=== PATIENT | male | born 1970 | race American Indian/Alaskan Native ===

== ENCOUNTER 2016-08-06 09:28 | Emergency (ER) | payer SELFPAY ==
[2016-08-06 09:59] VITALS: BP 135/87
[2016-08-06 10:20] LABS: Basophils % (Auto) 0.5 % (0.0-1.8); Eosinophils % (Auto) 0.2 % (0.0-4.3); Hematocrit 49.2 % (35.5-45.6); Hemoglobin 16.5 gm/dl (11.8-15.2); Mean Corpuscular HGB Conc 33 % (32-34); Mean Corpuscular Hemoglobin 31 pg (28-32); Mean Corpuscular Volume 94 fl (84-94); Platelet Count 215 K/mm3 (140-440); Red Blood Count 5.24 M/mm3 (3.65-5.03); Red Cell Distribution Width 15.1 % (13.2-15.2); White Blood Count 5.7 K/mm3 (4.5-11.0)
[2016-08-06 10:37] LABS: Anion Gap 22 mmol/L; Blood Urea Nitrogen 18 mg/dL (9-20); Calcium 9.2 mg/dL (8.4-10.2); Carbon Dioxide 22 mmol/L (22-30); Chloride 94.5 mmol/L (98-107); Glucose 129 mg/dL (75-100); Potassium 4.4 mmol/L (3.6-5.0); Sodium 134 mmol/L (137-145)
--- NOTE | 2016-08-06 10:56 | XRay Report ---
Chest 2 views: History: Chest pain. Findings: Normal cardiomediastinal silhouette. Trachea is midline. No consolidation, pneumothorax or pleural effusion. Impression: No acute cardiopulmonary findings.
--- NOTE | 2016-08-07 07:29 | ED Elopement Review ---
ED Pt Elopement review - Results review Lab results: Laboratory Tests 08/06/16 08/06/16 10:06 10:06 WBC 5.7 RBC 5.24 H Hgb 16.5 H Hct 49.2 H MCV 94 MCH 31 MCHC 33 RDW 15.1 Plt Count 215 Lymph % (Auto) 19.2 [place] % (Auto) 13.7 H Eos % (Auto) 0.2 Baso % (Auto) 0.5 Lymph # 1.1 L [place] # 0.8 Eos # 0.0 Baso # 0.0 Seg Neutrophils % 66.4 Seg Neutrophils # 3.8 Sodium 134 L Potassium 4.4 Chloride 94.5 L Carbon Dioxide 22 Anion Gap 22 BUN 18 Creatinine 1.0 Estimated GFR > 60 BUN/Creatinine Ratio 18.00 Glucose 129 H Calcium 9.2 Troponin T < 0.010 - Call Back decision Pt Call Back Decision: Pt to F/U with PMD (abnomal EKG PMD or return)
== END 2016-08-06 12:10 | disposition left against medical advice (07) ==
LOC: ED 09:28
DX: R07.9 Chest pain, unspecified (principal); R55 Syncope and collapse; I25.2 Old myocardial infarction; F17.200 Nicotine dependence, unspecified, uncomplicated; F12.90 Cannabis use, unspecified, uncomplicated; Z53.21 Procedure and treatment not carried out due to patient leaving prior to being seen by health care provider
CPT/HCPCS: 36415; 71020; 80048; 84484; 85025; 93005; 93010

== ENCOUNTER 2016-09-05 02:02 | Emergency (ER) | payer SELFPAY ==
[2016-09-05 03:30] LABS: Anion Gap 20 mmol/L; BUN/Creatinine Ratio 16.25; Blood Urea Nitrogen 13 mg/dL (9-20); Calcium 8.6 mg/dL (8.4-10.2); Carbon Dioxide 23 mmol/L (22-30); Chloride 100.1 mmol/L (98-107); Glucose 106 mg/dL (75-100); Potassium 4.3 mmol/L (3.6-5.0); Sodium 139 mmol/L (137-145)
[2016-09-05 03:38] LABS: Basophils % (Auto) 0.8 % (0.0-1.8); Eosinophils % (Auto) 1.2 % (0.0-4.3); Hematocrit 46.8 % (35.5-45.6); Hemoglobin 15.6 gm/dl (11.8-15.2); Mean Corpuscular HGB Conc 33 % (32-34); Mean Corpuscular Hemoglobin 31 pg (28-32); Mean Corpuscular Volume 93 fl (84-94); Platelet Count 226 K/mm3 (140-440); Red Blood Count 5.05 M/mm3 (3.65-5.03); Red Cell Distribution Width 14.5 % (13.2-15.2); White Blood Count 5.8 K/mm3 (4.5-11.0)
--- NOTE | 2016-09-05 04:01 | Cat Scan Report ---
FINAL REPORT PROCEDURE: CT HEAD/BRAIN WO CON TECHNIQUE: Computerized tomography of the head was performed without contrast material. HISTORY: fall, neck pain, numbness to LE COMPARISON: No prior studies are available for comparison. FINDINGS: Skull and scalp: Normal. Paranasal sinuses: There is right maxillary sinusitis.. Ventricles and subarachnoid spaces: Normal. Cerebrum: No evidence of hemorrhage, acute infarction or mass . Cerebellum and brainstem: No evidence of hemorrhage, acute infarction or mass. Vasculature: Normal. Comments: None. IMPRESSION: There is no skull fracture. There is no intracranial hemorrhage. There is right maxillary sinusitis.
--- NOTE | 2016-09-05 04:09 | Cat Scan Report ---
FINAL REPORT PROCEDURE: CT CERVICAL SPINE WO CON TECHNIQUE: Computerized tomography of the cervical spine was performed from the skull base to T1 without contrast material. HISTORY: fall, neck pain, numbness to LE COMPARISON: No prior studies are available for comparison. FINDINGS: The skull base and the foramen magnum are intact. Cervical vertebrae are intact. There are no fractures or malalignments. There is mild degenerative disc change. The facet joints are intact. There is no facet dislocation. The prevertebral soft tissues are normal in thickness. IMPRESSION: No significant abnormality.
--- NOTE | 2016-09-05 07:26 | Emergency Department Report ---
ED General Adult HPI - General Chief complaint: Neck Pain/Injury Stated complaint: NECK PAIN Time Seen by Provider: 09/05/16 07:04 Source: patient, EMS Mode of arrival: Ambulatory Limitations: No Limitations - History of Present Illness Initial comments: Patient is a 46-year-old male with a history of alcoholism, HTN, HLD, and CAD presents to the ED c/o neck pain, back pain, and frequent falls. Pt is a poor historian and is intoxicated. Pt reports for the last two months he has been falling and his last fall was approximately a few days ago, patient cannot recall. He does repeat over and over again "there's a knot in the neck upper back that's never been there before". Pt does report he has a stent and drinks alcohol daily. Otherwise no fevers, chills, NVD, chest pain, SOB, abd pain, extremity pain, parasthesias of the upper extremities, travel, or sick contacts. -: month(s) (2) Severity scale (0 -10): 10 - Related Data Previous Rx's Medication Instructions Recorded Last Taken Type Aspirin [Aspirin TAB] 325 mg PO QDAY #30 tablet 01/14/15 Unknown Rx AtorvaSTATin [Lipitor] 40 mg PO QHS #30 tablet 01/14/15 Unknown Rx Carvedilol [Coreg] 12.5 mg PO BID #60 tablet 01/14/15 Unknown Rx Clopidogrel [Plavix] 75 mg PO QDAY #30 tablet 01/14/15 Unknown Rx ISOSORBIDE MONOnitrate [Imdur ER] 30 mg PO QDAY #30 tablet 01/14/15 Unknown Rx Lisinopril [Zestril TAB] 10 mg PO QDAY #30 tablet 01/14/15 Unknown Rx Allergies Allergy/AdvReac Type Severity Reaction Status Date / Time No Known Allergies Allergy Unverified 11/11/14 11:05 ED Review of Systems ROS: Stated complaint: NECK PAIN Other details as noted in HPI Comment: Poor historian ED Past Medical Hx - Past Medical History Hx Hypertension: Yes (1990) Hx Heart Attack/AMI: Yes (11/2014) Hx Congestive Heart Failure: No Hx Diabetes: No Hx Deep Vein Thrombosis: No Hx Asthma: No Hx COPD: No Hx HIV: No - Surgical History Hx Coronary Stent: Yes Hx Pacemaker: No Hx Internal Defibrillator: No - Social History Smoking Status: Current Every Day Smoker Substance Use Type: Alcohol, Marijuana - Medications Home Medications: Home Medications Medication Instructions Recorded Confirmed Last Taken Type Aspirin [Aspirin TAB] 325 mg PO QDAY #30 tablet 01/14/15 09/05/16 Unknown Rx AtorvaSTATin [Lipitor] 40 mg PO QHS #30 tablet 01/14/15 09/05/16 Unknown Rx Carvedilol [Coreg] 12.5 mg PO BID #60 tablet 01/14/15 09/05/16 Unknown Rx Clopidogrel [Plavix] 75 mg PO QDAY #30 tablet 01/14/15 09/05/16 Unknown Rx ISOSORBIDE MONOnitrate [Imdur ER] 30 mg PO QDAY #30 tablet 01/14/15 09/05/16 Unknown Rx Lisinopril [Zestril TAB] 10 mg PO QDAY #30 tablet 01/14/15 09/05/16 Unknown Rx ED Physical Exam - General Limitations: No Limitations, Altered Mental Status, Other (intoxicated) General appearance: in no apparent distress, anxious - Head Head exam: Present: normocephalic, other (healing ecchymoses to the R confucianist) - Eye Eye exam: Present: normal appearance, PERRL, EOMI. Absent: scleral icterus, conjunctival injection, nystagmus - ENT ENT exam: Present: mucous membranes moist - Neck Neck exam: Present: normal inspection, tenderness (midline and paracervical, patient jumps back when attempting to palpate the neck), full ROM. Absent: meningismus, lymphadenopathy - Respiratory Respiratory exam: Present: normal lung sounds bilaterally. Absent: respiratory distress - Cardiovascular Cardiovascular Exam: Present: regular rate, normal rhythm. Absent: systolic murmur, diastolic murmur, rubs, gallop - GI/Abdominal GI/Abdominal exam: Present: soft, normal bowel sounds. Absent: distended, tenderness, guarding, rebound - Extremities Exam Extremities exam: Present: normal inspection, full ROM, normal capillary refill. Absent: tenderness, pedal edema, joint swelling, calf tenderness - Back Exam Back exam: Present: normal inspection, other (healing abrasions to the R lower back) - Neurological Exam Neurological exam: Present: alert, CN II-XII intact. Absent: motor sensory deficit - Psychiatric Psychiatric exam: Present: anxious - Skin Skin exam: Present: warm, dry, normal color. Absent: rash, cyanosis, diaphoretic, erythema ED Course Vital Signs 09/05/16 09/05/16 09/05/16 02:12 06:07 06:27 Temperature 98.2 F 97.5 F L Pulse Rate 92 H 88 Respiratory 18 26 H 21 Rate Blood Pressure 147/102 Blood Pressure 125/78 [Left] O2 Sat by Pulse 97 100 Oximetry ED Medical Decision Making - Lab Data Result diagrams: 09/05/16 02:57 09/05/16 02:57 - EKG Data -: EKG Interpreted by Me (time 02:11) EKG shows normal: sinus rhythm (normal sinus rhythm), axis (normal axis), intervals (QTC 431 ms), QRS complexes (no LVH, Q wave in V2), ST-T waves (T- wave inversions in the inferior lateral leads) Rate: normal - EKG Data When compared to previous EKG there are: no significant change (as compared to EKG from 11/10/2015) - Radiology Data Radiology results: report reviewed CT head: maxillary sinusitis, otherwise no acute findings CT cspine: no acute fracture, dislocation, or subluxation CXR: No acute findings Critical care attestation.: If time is entered above; I have spent that time in minutes in the direct care of this critically ill patient, excluding procedure time. ED Disposition Clinical Impression: AA (alcohol abuse), Neck pain Disposition: DISCHARGED TO HOME OR SELFCARE Is pt being admited?: No Condition: Stable Instructions: Abuse of Alcohol (ED), Alcohol Intoxication (ED), Cervical Spine Strain (ED) Referrals: PRIMARY CARE, [Primary Care Provider] - 3-5 Days
[2016-09-05] MEDS ORDERED: TORADOL IV ONE (07:35)
--- NOTE | 2016-09-05 09:45 | XRay Report ---
CHEST TWO VIEWS: 09/05/16 02:02:00 CLINICAL: Fall and chest pain. COMPARISON: 08/06/16 FINDINGS: Normal heart and pulmonary vasculature. The lungs are normally expanded and clear.No fracture. No pneumothorax. Normal soft tissues. IMPRESSION: Normal chest.
[2016-09-05 10:45] VITALS: BP 117/77
== END 2016-09-05 10:46 | disposition home or self-care (01) ==
LOC: ED 02:02
DX: M54.2 Cervicalgia (principal); F10.10 Alcohol abuse, uncomplicated; I10 Essential (primary) hypertension; F17.200 Nicotine dependence, unspecified, uncomplicated; F12.10 Cannabis abuse, uncomplicated; I25.2 Old myocardial infarction; I25.10 Atherosclerotic heart disease of native coronary artery without angina pectoris; E78.5 Hyperlipidemia, unspecified; Z95.1 Presence of aortocoronary bypass graft
CPT/HCPCS: 36415; 70450; 71020; 72125; 80048; 84484; 85025; 93005; 93010; 96374; 99285; G0480; J1885; 80320

== ENCOUNTER 2016-09-14 23:46 | Emergency (ER) | payer SELFPAY ==
[2016-09-15 01:57] LABS: Anion Gap 20 mmol/L; BUN/Creatinine Ratio 18.88; Blood Urea Nitrogen 17 mg/dL (9-20); Carbon Dioxide 24 mmol/L (22-30); Chloride 91.6 mmol/L (98-107); Glucose 114 mg/dL (75-100); Potassium 4.3 mmol/L (3.6-5.0); Sodium 131 mmol/L (137-145)
[2016-09-15 02:44] LABS: Basophils % (Auto) 0.7 % (0.0-1.8); Eosinophils % (Auto) 0.2 % (0.0-4.3); Hematocrit 43.6 % (35.5-45.6); Hemoglobin 14.7 gm/dl (11.8-15.2); Mean Corpuscular HGB Conc 34 % (32-34); Mean Corpuscular Hemoglobin 32 pg (28-32); Mean Corpuscular Volume 94 fl (84-94); Platelet Count 173 K/mm3 (140-440); Red Blood Count 4.66 M/mm3 (3.65-5.03); Red Cell Distribution Width 14.6 % (13.2-15.2); White Blood Count 6.2 K/mm3 (4.5-11.0)
[2016-09-15] MEDS ORDERED: TORADOL IV ONE (11:32)
[2016-09-15] MEDS ORDERED: ZOFRAN IV ONE (11:33)
[2016-09-15] MEDS ORDERED: DILAUDID IV ONE (11:33)
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
[2016-09-15 13:38] LABS: Bilirubin,Urine NEG (Negative); Blood,Urine SM (Negative); Ketones,Urine TR mg/dL (Negative); Leukocyte Esterase,Urine NEG (Negative); Mucus,Urine FEW /HPF; Nitrite,Urine NEG (Negative); Protein,Urine <15 mg/dL mg/dL (Negative)
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
[2016-09-15 14:56] VITALS: BP 103/61
== END 2016-09-15 14:56 | disposition home or self-care (01) ==
LOC: ED 23:46
DX: M79.1 Myalgia (principal); Z91.14 Patient's other noncompliance with medication regimen; I10 Essential (primary) hypertension; I25.2 Old myocardial infarction; F17.200 Nicotine dependence, unspecified, uncomplicated; F12.10 Cannabis abuse, uncomplicated; Y08.89XA Assault by other specified means, initial encounter; Y93.9 Activity, unspecified; Y92.9 Unspecified place or not applicable; Y99.9 Unspecified external cause status
CPT/HCPCS: 36415; 70450; 71020; 72100; 80048; 81001; 84484; 85025; 93005; 93010; 96374; 96375; 99285; J1170; J1885; J2405

== ENCOUNTER 2018-09-12 21:04 | Observation (INO) | payer SELFPAY ==
[2018-09-12] MEDS ORDERED: ASPIRIN PO ONE (21:21)
--- NOTE | 2018-09-12 21:22 | Emergency Department Report ---
Chief Complaint: Neuro Symptoms/Deficit Stated Complaint: POSS STROKE Time Seen by Provider: 09/12/18 21:17 - HPI History of Present Illness: This is a 48 y.o. M. that presents to the ER with numbness and tingling 3 days. States left hand started locking up 3 days ago. PMH: [place], HTN, stents 2014 Current smoker Drink 6 pack every 2 days. Drunk 3 beers today. Reports chest feel like someone is standing on his chest. - Exam Vital Signs: Vital Signs 09/12/18 21:17 Temperature 98 F Pulse Rate 105 H Respiratory 18 Rate Blood Pressure 181/118 O2 Sat by Pulse 98 Oximetry MSE screening note: Focused history and physical exam performed. Due to findings the following was ordered: This initial assessment/diagnostic orders/clinical plan/treatment(s) is/are subject to change based on patient's health status, clinical progression and re- assessment by fellow clinical providers in the ED. Further treatment and workup at subsequent clinical providers discretion. Patient/guardians urged not to elope from the ED as their condition may be serious if not clinically assessed and managed. Initial orders include: 1- Patient sent to [facility] for further evaluation and treatment 2- EKG, CXR, and labs ED Disposition for MSE Condition: Stable
[2018-09-12 21:37] LABS: Basophils # (Auto) 0.1 K/mm3 (0.0-0.1); Basophils % (Auto) 1.3 % (0.0-1.8); Eosinophils % (Auto) 0.1 % (0.0-4.3); Hematocrit 55.1 % (35.5-45.6); Hemoglobin 18.7 gm/dl (11.8-15.2); Lymphocytes # (Auto) 1.9 K/mm3 (1.2-5.4); Lymphocytes % (Auto) 39.8 % (13.4-35.0); Mean Corpuscular HGB Conc 34 % (32-34); Mean Corpuscular Volume 95 fl (84-94); Monocytes # (Auto) 0.5 K/mm3 (0.0-0.8); Platelet Count 238 K/mm3 (140-440); Red Blood Count 5.78 M/mm3 (3.65-5.03); Red Cell Distribution Width 15.6 % (13.2-15.2)
[2018-09-12 21:53] LABS: BUN/Creatinine Ratio 7; Blood Urea Nitrogen 8 mg/dL (9-20); Calcium 9.1 mg/dL (8.4-10.2); Hemolysis Index 6
--- NOTE | 2018-09-12 22:07 | XRay Report ---
PROCEDURE: XR CHEST 1V AP TECHNIQUE: Chest radiograph single view. HISTORY: Chest Pain COMPARISONS: Comparison is dated September 15, 2016 FINDINGS: Heart: Normal. Mediastinum/Vessels: Normal. Lungs/Pleural space: Normal. Bony thorax: No acute osseous abnormality. Life support devices: None. IMPRESSION: No acute cardiopulmonary abnormality. This document is electronically signed by Deangelo Agudelo MD., Sep 12 2018 10:05:14 PM ET
[2018-09-13] MEDS ORDERED: NITROSTAT SL PRN (01:59)
[2018-09-13] MEDS ORDERED: ALUM-MAG HYDROX-SIMETH 200-200-20MG/5ML PO ONE (02:00)
--- NOTE | 2018-09-13 02:03 | History and Physical Report ---
History of Present Illness Date of examination: 09/13/18 History of present illness: 48-year-old man with a history of hypertension, CAD comes to the emergency room complains of chest pain that started yesterday. pain in the left substernal area which he describes a sharp pain,constant, intensity 5/10, radiating to left arm, cannot identify exacerbating or relieving factors. Admits to shortness of breath, palpitations, Denies nausea vomiting, , diaphoresis. He had a stent placed in 2016, took plavix for only 1 month Review of systems Constitutional: no weight loss, chills, fever Ears, eyes, nose, mouth and throat: no nasal congestion, no nasal discharge, no sinus pressure, no vision change, no red eye. Neck: No neck pain or rigidity. Cardiovascular:+ palpitations Respiratory: no cough, +shortness of breath Gastrointestinal: no hematochezia, abdominal pain Genitourinary : no frequency , no hematuria Musculoskeletal: no joint swelling or muscle ache Integumentary: no rash, no pruritis Neurological: no parathesias, no focal weakness Endocrine: no cold or heat intolerance, no polyuria or polydipsia Hematologic/Lymphatic: no easy bruising, no easy bleeding, no gland swelling Allergic/Immunologic: no urticaria, no angioedema. PAST MEDICAL HISTORY: hypertension,CAD PAST SURGICAL HISTORY: None SOCIAL HISTORY: + alcohol, drugs, smoke 1/2 pack a day FAMILY HISTORY: Hypertension Medications and Allergies Allergies Allergy/AdvReac Type Severity Reaction Status Date / Time No Known Allergies Allergy Verified 09/12/18 21:09 Home Medications Medication Instructions Recorded Confirmed Last Taken Type Aspirin 325 mg PO QDAY #30 tablet 09/15/16 Unknown Rx AtorvaSTATin [Lipitor] 40 mg PO QHS #30 tablet 09/15/16 Unknown Rx Carvedilol [Coreg] 12.5 mg PO BID #60 tablet 09/15/16 Unknown Rx Clopidogrel [Plavix] 75 mg PO QDAY #30 tablet 09/15/16 Unknown Rx HYDROcodone/APAP 5-325 [[place] 1 each PO Q6HR PRN #20 tablet 09/15/16 Unknown Rx 5/325] ISOSORBIDE MONOnitrate [Imdur ER] 30 mg PO QDAY #30 tablet 09/15/16 Unknown Rx Ibuprofen [Motrin] 800 mg PO Q8HR PRN #30 tablet 09/15/16 Unknown Rx Lisinopril [Zestril TAB] 10 mg PO QDAY #30 tablet 09/15/16 Unknown Rx Active Meds: Active Medications Nitroglycerin (Nitrostat) 0.4 mg SL .Q5MIN PRN PRN Reason: Chest Pain Exam - Physical Exam Narrative exam: General Apperance: The patient lying in bed, breathing comfortable HEENT: Normocephalic, atraumatic. Pupils equally round and reactive to light, EOMI, no sclericterus or JVD or thyromegaly or nodule. , no carotid bruit, mucous membranes moist, no exudate or erythema Heart: S1-S2, regular is rhythm Lungs: Clear to auscultation bilaterally, breathing comfortable Abdomen: Positive bowel sounds, soft, nontender, nondistended, no organomegaly Extremities: No edema cyanosis clubbing Skin: no rash, nodule, warm and dry Neuro: cranial nerves 2-12 intact, speech is fluent, motor/sensory intact - Constitutional Vitals: Temp Pulse Resp BP Pulse Ox 98 F 105 H 18 181/118 98 09/12/18 21:17 09/12/18 21:17 09/12/18 21:17 09/12/18 21:17 09/12/18 21:17 Results - Labs CBC & Chem 7: 09/12/18 21:27 09/12/18 21:27 Labs: Abnormal lab results 09/12/18 09/12/18 Range/Units 21:27 21:27 RBC 5.78 H (3.65-5.03) M/mm3 Hgb 18.7 H (11.8-15.2) gm/dl Hct 55.1 H (35.5-45.6) % MCV 95 H (84-94) fl RDW 15.6 H (13.2-15.2) % Lymph % (Auto) 39.8 H (13.4-35.0) % [place] % (Auto) 11.0 H (0.0-7.3) % Sodium 131 L (137-145) mmol/L Chloride 89.8 L (98-107) mmol/L BUN 8 L (9-20) mg/dL Glucose 116 H (75-100) mg/dL - Imaging and Cardiology EKG: image reviewed Chest x-ray: image reviewed Assessment and Plan Assessment Chest pain CAD Hypertension uncontrolled Plan Admit to medicine Check cardiac enzymes, stress test IV hydralazine for blood pressure control Start aspirin, morphine DVT prophylaxis
--- NOTE | 2018-09-13 02:06 | Emergency Department Report ---
ED Chest Pain HPI - General Chief Complaint: Neuro Symptoms/Deficit Stated Complaint: POSS STROKE Time Seen by Provider: 09/12/18 21:17 Source: patient Mode of arrival: Ambulatory Limitations: No Limitations - History of Present Illness Initial Comments: Mr. Arrieta is a 48-year-old male history of coronary artery disease status post AR, alcohol abuse who presents with 2 days of chest pain. He has been without medication for quite some time. 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 For the past 2 days has had left-sided chest pain severe constant even at rest. Feels like he's being punched in the chest. He also has tingling/numbness in all his extremities. MD Complaint: chest pain -: Gradual, days(s) (2) Onset: during rest Pain Location: left chest Severity: severe Quality: heaviness, pressure Consistency: constant Improves With: nothing Worsens With: nothing - Related Data Previous Rx's Medication Instructions Recorded Last Taken Type Aspirin 325 mg PO QDAY #30 tablet 09/15/16 Unknown Rx AtorvaSTATin [Lipitor] 40 mg PO QHS #30 tablet 09/15/16 Unknown Rx Carvedilol [Coreg] 12.5 mg PO BID #60 tablet 09/15/16 Unknown Rx Clopidogrel [Plavix] 75 mg PO QDAY #30 tablet 09/15/16 Unknown Rx HYDROcodone/APAP 5-325 [[place] 1 each PO Q6HR PRN #20 tablet 09/15/16 Unknown Rx 5/325] ISOSORBIDE MONOnitrate [Imdur ER] 30 mg PO QDAY #30 tablet 09/15/16 Unknown Rx Ibuprofen [Motrin] 800 mg PO Q8HR PRN #30 tablet 09/15/16 Unknown Rx Lisinopril [Zestril TAB] 10 mg PO QDAY #30 tablet 09/15/16 Unknown Rx Allergies Allergy/AdvReac Type Severity Reaction Status Date / Time No Known Allergies Allergy Verified 09/12/18 21:09 Heart Score - HEART Score History: Moderately suspicious EKG: Non-specific Age: 45-65 Risk factors: 1-2 risk factors Troponin: < normal limit HEART Score: 4 ED Review of Systems ROS: Stated complaint: POSS STROKE Other details as noted in HPI Comment: All other systems reviewed and negative Constitutional: denies: fever, malaise Respiratory: denies: cough Cardiovascular: chest pain Neurological: paresthesias ED Past Medical Hx - Past Medical History Previous Medical History?: Yes Hx Hypertension: Yes (1990) Hx Heart Attack/AMI: Yes (11/2014, 01/2015) Hx Congestive Heart Failure: No Hx Diabetes: No Hx Deep Vein Thrombosis: No Hx Asthma: No Hx COPD: No Hx HIV: No - Surgical History Past Surgical History?: Yes Hx Coronary Stent: Yes Hx Pacemaker: No Hx Internal Defibrillator: No - Social History Smoking Status: Current Every Day Smoker Substance Use Type: Alcohol - Medications Home Medications: Home Medications Medication Instructions Recorded Confirmed Last Taken Type Aspirin 325 mg PO QDAY #30 tablet 09/15/16 Unknown Rx AtorvaSTATin [Lipitor] 40 mg PO QHS #30 tablet 09/15/16 Unknown Rx Carvedilol [Coreg] 12.5 mg PO BID #60 tablet 09/15/16 Unknown Rx Clopidogrel [Plavix] 75 mg PO QDAY #30 tablet 09/15/16 Unknown Rx HYDROcodone/APAP 5-325 [[place] 1 each PO Q6HR PRN #20 tablet 09/15/16 Unknown Rx 5/325] ISOSORBIDE MONOnitrate [Imdur ER] 30 mg PO QDAY #30 tablet 09/15/16 Unknown Rx Ibuprofen [Motrin] 800 mg PO Q8HR PRN #30 tablet 09/15/16 Unknown Rx Lisinopril [Zestril TAB] 10 mg PO QDAY #30 tablet 09/15/16 Unknown Rx ED Physical Exam - General Limitations: No Limitations General appearance: alert, in no apparent distress - Head Head exam: Present: atraumatic, normocephalic - Eye Eye exam: Present: conjunctival injection. Absent: scleral icterus, nystagmus - ENT ENT exam: Present: mucous membranes moist - Neck Neck exam: Present: normal inspection, full ROM - Respiratory Respiratory exam: Present: normal lung sounds bilaterally. Absent: respiratory distress, wheezes, rales, rhonchi - Cardiovascular Cardiovascular Exam: Present: regular rate, normal rhythm, normal heart sounds. Absent: systolic murmur, diastolic murmur, rubs, gallop - GI/Abdominal GI/Abdominal exam: Present: soft, normal bowel sounds. Absent: distended, tenderness, guarding, rebound - Rectal Rectal exam: Present: deferred - Extremities Exam Extremities exam: Present: normal inspection - Back Exam Back exam: Present: normal inspection - Neurological Exam Neurological exam: Present: alert, oriented X3 - Expanded Neurological Exam Expanded Patient oriented to: Present: person, place, time Speech: Present: fluid speech Cranial nerves: EOM's Intact: Normal, Gag Reflex: Normal Cerebellar function: Finger to Nose: Normal Upper motor neuron: Alonso Neglect: Normal, Pronator Drift: Normal Sensory exam: Upper Extremity Light Touch: Normal Motor strength exam: RUE: 5, LUE: 5, RLE: 5, LLE: 5 Best Eye Response ([place]): (4) open spontaneously Best Motor Response ([place]): (6) obeys commands Best Verbal Response ([place]): (5) oriented Russell Total: 15 - Psychiatric Psychiatric exam: Present: normal affect, normal mood - Skin Skin exam: Present: warm, dry, intact, normal color. Absent: rash ED Course Vital Signs 09/12/18 21:17 Temperature 98 F Pulse Rate 105 H Respiratory 18 Rate Blood Pressure 181/118 O2 Sat by Pulse 98 Oximetry JORGE score - Jorge Score Age > 65: (0) No Aspirin use within the Past 7 Days: (0) No 3 or more CAD Risk Factors: (1) Yes 2 or more Angina events in past 24 hrs: (1) Yes Known CAD with more than 50% Stenosis: (1) Yes Elevated Cardiac Markers: (0) No ST Deviation Greater than 0.5mm: (1) Yes JORGE Score: 4 ED Medical Decision Making - Lab Data Result diagrams: 09/12/18 21:27 09/12/18 21:27 Laboratory Results - last 24 hr 09/12/18 09/12/18 09/12/18 21:13 21:27 21:27 WBC 4.7 RBC 5.78 H Hgb 18.7 H Hct 55.1 H MCV 95 H MCH 32 MCHC 34 RDW 15.6 H Plt Count 238 Lymph % (Auto) 39.8 H [place] % (Auto) 11.0 H Eos % (Auto) 0.1 Baso % (Auto) 1.3 Lymph # 1.9 [place] # 0.5 Eos # 0.0 Baso # 0.1 Seg Neutrophils % 47.8 Seg Neutrophils # 2.2 Sodium 131 L Potassium 4.8 Chloride 89.8 L Carbon Dioxide 23 Anion Gap 23 BUN 8 L Creatinine 1.1 Estimated GFR > 60 BUN/Creatinine Ratio 7 Glucose 116 H POC Glucose 90 Calcium 9.1 Magnesium Troponin T < 0.010 09/13/18 00:08 WBC RBC Hgb Hct MCV MCH MCHC RDW Plt Count Lymph % (Auto) [place] % (Auto) Eos % (Auto) Baso % (Auto) Lymph # [place] # Eos # Baso # Seg Neutrophils % Seg Neutrophils # Sodium Potassium Chloride Carbon Dioxide Anion Gap BUN Creatinine Estimated GFR BUN/Creatinine Ratio Glucose POC Glucose Calcium Magnesium 2.20 Troponin T < 0.010 - EKG Data 09/13/18 02:05 EKG obtained 2123 Normal sinus rhythm 95 beats a minute normal axis intervals nonspecific T wave pattern poor R-wave progression positive LVH - Radiology Data Radiology results: report reviewed No acute process according to radiology report - Medical Decision Making 1. chest pain high risk for ACS without current medical care, will need further cardiac evaluation 2. hyponatremia due to beer potomania 3. paresthesias likely due to vitamin deficiency with hx of alcoholism 4. hypertensive urgency due noncompliance Critical care attestation.: If time is entered above; I have spent that time in minutes in the direct care of this critically ill patient, excluding procedure time. ED Disposition Clinical Impression: Hypertensive urgency, Hyponatremia, Paresthesias Chest pain Qualifiers: Chest pain type: chest pain due to myocardial ischemia Qualified Code(s): I20.9 - Angina pectoris, unspecified Disposition: -09 OP ADMIT IP TO THIS HOSP Is pt being admited?: Yes Does the pt Need Aspirin: No Condition: Stable Instructions: Chest Pain (ED)
[2018-09-13] MEDS ORDERED: ZESTRIL PO ONE (02:10)
[2018-09-13] MEDS ORDERED: COREG PO ONE (02:10)
[2018-09-13] MEDS ORDERED: TYLENOL PO PRN (02:15)
[2018-09-13] MEDS ORDERED: APRESOLINE IV PRN (02:15)
[2018-09-13] MEDS ORDERED: MORPHINE IV PRN (02:15)
[2018-09-13] MEDS ORDERED: ZOFRAN IV PRN (02:15)
[2018-09-13] MEDS ORDERED: SODIUM CHLORIDE FLUSH SYRINGE 10 ML IV PRN (02:15)
[2018-09-13] MEDS ORDERED: LOVENOX SUB-Q SCH ×2 (10:00)
[2018-09-13] MEDS ORDERED: SODIUM CHLORIDE FLUSH SYRINGE 10 ML IV SCH (10:00)
[2018-09-13] MEDS ORDERED: ASPIRIN PO SCH (10:00)
[2018-09-13] MEDS ORDERED: ZOFRAN ONE (10:06)
[2018-09-13] MEDS ORDERED: XANAX PO ONE (11:00)
[2018-09-13] MEDS ORDERED: LEXISCAN IV ONE ×2 (11:29→11:33)
--- NOTE | 2018-09-13 12:54 | Event Note ---
Date: 09/13/18 MPI 09/13/2018: Moderate size fixed mid and basal anteroseptal wall defect of moderate intensity consistent with prior infarct in the LAD distribution Moderately dilated LV cavity with LVEF 31% No scintigraphic evidence of myocardial ischemia
--- NOTE | 2018-09-13 13:06 | Discharge Summary ---
Providers - Providers Date of Admission: 09/13/18 02:15 Date of discharge: 09/13/18 Attending physician: ARIK SANTOS [facility] Condition: Stable Pertinent studies: Chest x-ray, stress test Hospital course: 48-year-old man with a history of hypertension, CAD came to the emergency room complains of chest pain that started yesterday. pain in the left substernal area which he describes a sharp pain,constant, intensity 5/10, radiating to left arm, cannot identify exacerbating or relieving factors along with shortness of breath, palpitations. He had a stent placed in 2016, took plavix for only 1 month after that. He was admitted for further evaluation and management. His CE were normal. EKG had no acute changes. Stress test showed no Moderate size fixed mid and basal anteroseptal wall defect of moderate intensity consistent with prior infarct in the LAD distribution, Moderately dilated LV cavity with LVEF 31% and No scintigraphic evidence of myocardial ischemia. He was then discharged home in stable condition with outpt followup. Counselled for medication compliance and placed on PPI before discharge. Discharge diagnosis: Chest pain, atypical, stress test was negative, likely from GERD CAD, stable Hypertension uncontrolled, improved Chronic systolic heart failure, EF 30%, compensated Disposition: DC-01 TO HOME OR SELFCARE Time spent for discharge: 34 minutes Core Measure Documentation - Palliative Care Palliative Care/ Comfort Measures: Not Applicable - Core Measures Any of the following diagnoses?: history only Exam - Constitutional Vitals: Temp Pulse Resp BP Pulse Ox 97.9 F 71 16 107/66 98 09/13/18 08:32 09/13/18 08:32 09/13/18 08:32 09/13/18 12:14 09/13/18 10:00 General appearance: Present: no acute distress, well-nourished - EENT Eyes: Present: PERRL ENT: hearing intact, clear oral mucosa - Neck Neck: Present: supple, normal ROM - Respiratory Respiratory effort: normal Respiratory: bilateral: CTA - Cardiovascular Heart Sounds: Present: S1 & S2. Absent: rub, click - Extremities Extremities: pulses symmetrical, No edema Peripheral Pulses: within normal limits - Abdominal General gastrointestinal: Present: soft, non-tender, non-distended, normal bowel sounds - Integumentary Integumentary: Present: clear, warm, dry - Musculoskeletal Musculoskeletal: gait normal, strength equal bilaterally - Psychiatric Psychiatric: appropriate mood/affect, intact judgment & insight - Neurologic Neurologic: CNII-XII intact, moves all extremities Plan Activity: advance as tolerated (in) Weight Bearing Status: Weight Bear as Tolerated Diet: low fat, low salt Follow up with: RASHEED CHAN MD [Primary Care Provider] - 7 Days Prescriptions: Pantoprazole [Protonix] 40 mg PO QDAY #30 tablet
[2018-09-13 18:28] VITALS: BP 119/76
--- NOTE | 2018-09-14 03:56 | Treadmill Report ---
INDICATION: Chest pain. ORDERING PHYSICIAN: Lauren Lozano MD FINDINGS: There is evidence of a moderate size fixed mid and basal anteroseptal wall defect of moderate intensity consistent with prior infarction in the LAD distribution. There is no scintigraphic evidence of myocardial ischemia. The left ventricular cavity is moderately dilated. There is evidence of [id number] systolic dysfunction with an ejection fraction measured at 31%. There is a [id number] global hypokinesis. There is akinesis of the anteroseptal wall. IMPRESSION: 1. High-risk myocardial perfusion scan associated with a 1-year cardiovascular event rate of greater than 3%. 2. Moderately dilated left ventricular cavity with ejection fraction of 31%. Moderate to severe global left ventricular hypokinesis with anteroseptal akinesis. 3. Moderate sized fixed defect in the basal and mid anteroseptal wall consistent with prior infarction in the LAD distribution. 4. No scintigraphic evidence of myocardial ischemia. [facility]# [id number] [place]/MAE
== END 2018-09-13 18:20 | disposition home or self-care (01) ==
LOC: ED 21:04 → 4A 09-13 02:15
PROVIDERS: ADMIT Internal Medicine; ATTEND Internal Medicine
DX: R07.89 Other chest pain (principal); I25.10 Atherosclerotic heart disease of native coronary artery without angina pectoris; I11.0 Hypertensive heart disease with heart failure; I50.20 Unspecified systolic (congestive) heart failure; F17.210 Nicotine dependence, cigarettes, uncomplicated
CPT/HCPCS: 36415; 71045; 78452; 80048; 82962; 83735; 84484; 85025; 93005; 93010; 93017; 96372; 96374; 96375; 99284; A9502; G0378; J1650; J2270; J2405; J2785

== ENCOUNTER 2019-07-11 10:31 | Observation (INO) | payer SELFPAY ==
[2019-07-11] MEDS ORDERED: NITROGLYCERIN 2% OINT 1 GM TP ONE (11:08)
[2019-07-11] MEDS ORDERED: ONDANSETRON 4 MG/2 ML INJ IV ONE (11:08)
[2019-07-11] MEDS ORDERED: MORPHINE 4 MG/1 ML INJ IV ONE ×2 (11:08→13:45)
--- NOTE | 2019-07-11 11:24 | Emergency Department Report ---
ED Chest Pain HPI - General Chief Complaint: Chest Pain Stated Complaint: CHEST PAIN/PALPS Source: patient, old records reviewed Mode of arrival: Stretcher Limitations: No Limitations - History of Present Illness Initial Comments: 49-year-old male with a past medical history of previous alcohol abuse currently denies, CAD with stent placement, and hypertension presents to the hospital with complaints of worsening and chronic chest pain. Patient states he has chronic daily constant left-sided chest pressure that fluctuates in intensity. Today he slipped and fell on some water falling backwards striking his head but denies LOC or current headache. After his fall his left-sided constant chest pressure has worsened. Pain radiates to the left arm. Patient complains of chronic shortness of breath that is also worsened since fall. Patient was provided aspirin 325 mg and nitroglycerin x1 with via EMS without improvement in pain. He has been noncompliant with all his medications for the last 2 days he continues to smoke cigarettes but is cutting down. He continues to drink alcohol on occasion but denies daily alcohol use or alcohol withdrawal tremors. - Related Data Previous Rx's Medication Instructions Recorded Last Taken Type Aspirin 325 mg PO QDAY #30 tablet 09/15/16 Unknown Rx AtorvaSTATin [Lipitor] 40 mg PO QHS #30 tablet 09/15/16 Unknown Rx Clopidogrel [Plavix] 75 mg PO QDAY #30 tablet 09/15/16 Unknown Rx HYDROcodone/APAP 5-325 [[place] 1 each PO Q6HR PRN #20 tablet 09/15/16 Unknown Rx 5-325 mg TAB] ISOSORBIDE MONOnitrate [Imdur ER] 30 mg PO QDAY #30 tablet 09/15/16 Unknown Rx carvediloL [Coreg] 12.5 mg PO BID #60 tablet 09/15/16 Unknown Rx lisinopriL [Zestril TAB] 10 mg PO QDAY #30 tablet 09/15/16 Unknown Rx Pantoprazole [Protonix] 40 mg PO QDAY #30 tablet 09/13/18 Unknown Rx Allergies Allergy/AdvReac Type Severity Reaction Status Date / Time lisinopril AdvReac Swelling Verified 07/11/19 10:58 Heart Score - HEART Score History: Slightly suspicious EKG: Non-specific Age: 45-65 Risk factors: > 3 risk factors or hx of atherosclerotic disease Troponin: < normal limit HEART Score: 4 ED Review of Systems ROS: Stated complaint: CHEST PAIN/PALPS Other details as noted in HPI ED Past Medical Hx - Past Medical History Hx Hypertension: Yes (1990) Hx Heart Attack/AMI: Yes (11/2014, 01/2015) Hx Congestive Heart Failure: No Hx Diabetes: No Hx Deep Vein Thrombosis: No Hx Asthma: No Hx COPD: No Hx HIV: No - Surgical History Hx Coronary Stent: Yes Hx Pacemaker: No Hx Internal Defibrillator: No - Social History Smoking Status: Current Every Day Smoker Substance Use Type: Alcohol - Medications Home Medications: Home Medications Medication Instructions Recorded Confirmed Last Taken Type Aspirin 325 mg PO QDAY #30 tablet 09/15/16 09/13/18 Unknown Rx AtorvaSTATin [Lipitor] 40 mg PO QHS #30 tablet 09/15/16 09/13/18 Unknown Rx Clopidogrel [Plavix] 75 mg PO QDAY #30 tablet 09/15/16 09/13/18 Unknown Rx HYDROcodone/APAP 5-325 [[place] 1 each PO Q6HR PRN #20 tablet 09/15/16 09/13/18 Unknown Rx 5-325 mg TAB] ISOSORBIDE MONOnitrate [Imdur ER] 30 mg PO QDAY #30 tablet 09/15/16 09/13/18 Unknown Rx carvediloL [Coreg] 12.5 mg PO BID #60 tablet 09/15/16 09/13/18 Unknown Rx lisinopriL [Zestril TAB] 10 mg PO QDAY #30 tablet 09/15/16 09/13/18 Unknown Rx Pantoprazole [Protonix] 40 mg PO QDAY #30 tablet 09/13/18 Unknown Rx ED Physical Exam - General Limitations: No Limitations - Other Other exam information: General: No acute distress Head: Atraumatic Eyes: normal appearance ENT: Moist mucous membranes Neck: Normal appearance, no midline tenderness Chest: Clear to auscultation bilaterally, tenderness to sternal and left chest wall CV: Regular rate and rhythm Abdomen: Soft, normal bowel sounds, nontender, nondistended, no rebound or guarding Back: Normal inspection Extremity: Normal inspection, full range of motion, no calf tenderness or leg edema Neuro: Alert O x 3, no facial asymmetry, speech clear, no gross motor sensory deficit Psych: Appropriate behavior Skin: No rash ED Course Vital Signs 07/11/19 07/11/19 07/11/19 10:55 11:00 11:08 Temperature 98.5 F Pulse Rate 109 H 106 H Respiratory 25 H 17 20 Rate Blood Pressure 157/106 162/107 Blood Pressure [Right] O2 Sat by Pulse 98 96 Oximetry 07/11/19 07/11/19 07/11/19 11:30 12:00 12:15 Temperature Pulse Rate 96 H 95 H Respiratory 20 19 16 Rate Blood Pressure 161/102 174/108 Blood Pressure [Right] O2 Sat by Pulse 95 97 Oximetry 07/11/19 07/11/19 07/11/19 12:30 13:00 14:00 Temperature Pulse Rate 104 H 108 H 95 H Respiratory 17 20 22 Rate Blood Pressure 171/107 162/100 157/99 Blood Pressure [Right] O2 Sat by Pulse 93 94 95 Oximetry 07/11/19 07/11/19 07/11/19 14:45 16:27 16:30 Temperature Pulse Rate 99 H 99 H 99 H Respiratory 21 Rate Blood Pressure 139/83 139/83 139/83 Blood Pressure [Right] O2 Sat by Pulse 99 Oximetry 07/11/19 16:32 Temperature Pulse Rate 98 H Respiratory 13 Rate Blood Pressure Blood Pressure 141/94 [Right] O2 Sat by Pulse 100 Oximetry JORGE score - Jorge Score Age > 65: (0) No Aspirin use within the Past 7 Days: (0) No 3 or more CAD Risk Factors: (1) Yes 2 or more Angina events in past 24 hrs: (1) Yes Known CAD with more than 50% Stenosis: (1) Yes Elevated Cardiac Markers: (0) No ST Deviation Greater than 0.5mm: (1) Yes JORGE Score: 4 ED Medical Decision Making - Lab Data Result diagrams: 07/11/19 11:20 07/11/19 11:20 Lab Results 07/11/19 07/11/19 07/11/19 Range/Units 11:20 11:20 11:20 WBC 6.1 (4.5-11.0) K/mm3 RBC 5.65 H (3.65-5.03) M/mm3 Hgb 17.4 H (11.8-15.2) gm/dl Hct 52.5 H (35.5-45.6) % MCV 93 (84-94) fl MCH 31 (28-32) pg MCHC 33 (32-34) % RDW 16.5 H (13.2-15.2) % Plt Count 210 (140-440) K/mm3 Lymph % (Auto) 16.5 (13.4-35.0) % [place] % (Auto) 8.4 H (0.0-7.3) % Eos % (Auto) 0.2 (0.0-4.3) % Baso % (Auto) 0.7 (0.0-1.8) % Lymph # 1.0 L (1.2-5.4) K/mm3 [place] # 0.5 (0.0-0.8) K/mm3 Eos # 0.0 (0.0-0.4) K/mm3 Baso # 0.0 (0.0-0.1) K/mm3 Seg Neutrophils % 74.2 H (40.0-70.0) % Seg Neutrophils # 4.5 (1.8-7.7) K/mm3 PT 12.6 (12.2-14.9) Sec. INR 0.93 (0.87-1.13) APTT 24.4 (24.2-36.6) Sec. D-Dimer 849.86 H (0-234) ng/mlDDU Sodium 139 (137-145) mmol/L Potassium 4.5 (3.6-5.0) mmol/L Chloride 99.7 (98-107) mmol/L Carbon Dioxide 20 L (22-30) mmol/L Anion Gap 24 mmol/L BUN 12 (9-20) mg/dL Creatinine 1.1 (0.8-1.5) mg/dL Estimated GFR > 60 ml/min BUN/Creatinine Ratio 11 % Glucose 112 H (75-100) mg/dL Calcium 9.5 (8.4-10.2) mg/dL Magnesium 1.90 (1.7-2.3) mg/dL Total Bilirubin 0.40 (0.1-1.2) mg/dL AST 45 H (5-40) units/L ALT 44 (7-56) units/L Alkaline Phosphatase 63 (35-129) units/L Troponin T < 0.010 (0.00-0.029) ng/mL Total Protein 7.6 (6.3-8.2) g/dL Albumin 4.3 (3.9-5) g/dL Albumin/Globulin Ratio 1.3 % Urine Opiates Screen Urine Methadone Screen Ur Barbiturates Screen Ur Phencyclidine Scrn Ur Amphetamines Screen U Benzodiazepines Scrn Urine Cocaine Screen U Marijuana (THC) Screen Drugs of Abuse Note Plasma/Serum Alcohol (0-0.07) % Blood Type Antibody Screen 07/11/19 07/11/19 07/11/19 Range/Units 11:20 11:24 13:05 WBC (4.5-11.0) K/mm3 RBC (3.65-5.03) M/mm3 Hgb (11.8-15.2) gm/dl Hct (35.5-45.6) % MCV (84-94) fl MCH (28-32) pg MCHC (32-34) % RDW (13.2-15.2) % Plt Count (140-440) K/mm3 Lymph % (Auto) (13.4-35.0) % [place] % (Auto) (0.0-7.3) % Eos % (Auto) (0.0-4.3) % Baso % (Auto) (0.0-1.8) % Lymph # (1.2-5.4) K/mm3 [place] # (0.0-0.8) K/mm3 Eos # (0.0-0.4) K/mm3 Baso # (0.0-0.1) K/mm3 Seg Neutrophils % (40.0-70.0) % Seg Neutrophils # (1.8-7.7) K/mm3 PT (12.2-14.9) Sec. INR (0.87-1.13) APTT (24.2-36.6) Sec. D-Dimer (0-234) ng/mlDDU Sodium (137-145) mmol/L Potassium (3.6-5.0) mmol/L Chloride (98-107) mmol/L Carbon Dioxide (22-30) mmol/L Anion Gap mmol/L BUN (9-20) mg/dL Creatinine (0.8-1.5) mg/dL Estimated GFR ml/min BUN/Creatinine Ratio % Glucose (75-100) mg/dL Calcium (8.4-10.2) mg/dL Magnesium (1.7-2.3) mg/dL Total Bilirubin (0.1-1.2) mg/dL AST (5-40) units/L ALT (7-56) units/L Alkaline Phosphatase (35-129) units/L Troponin T (0.00-0.029) ng/mL Total Protein (6.3-8.2) g/dL Albumin (3.9-5) g/dL Albumin/Globulin Ratio % Urine Opiates Screen Presumptive negative Urine Methadone Screen Presumptive negative Ur Barbiturates Screen Presumptive negative Ur Phencyclidine Scrn Presumptive negative Ur Amphetamines Screen Presumptive negative U Benzodiazepines Scrn Presumptive negative Urine Cocaine Screen Presumptive negative U Marijuana (THC) Screen Presumptive negative Drugs of Abuse Note Disclamer Plasma/Serum Alcohol < 0.01 (0-0.07) % Blood Type B POSITIVE Antibody Screen Negative - EKG Data -: EKG Interpreted by [place] EKG shows normal: sinus rhythm, ST-T waves (no stemi) - Radiology Data Radiology results: report reviewed CT angio chest INDICATION: MAIN: cp, sob 100cc of omnipaque 350. TECHNIQUE: All CT scans at this location are performed using CT dose reduction for ALARA by means of automated exposure control. Precontrast localizer images were obtained, followed by axial and 3-dimensional reconstruction images, performed at an independent workstation by the ct scan technologist after IV bolus contrast injection. COMPARISON: None available. FINDINGS: Mediastinum, rani and axillae are negative. Images through the upper abdomen show stones in the gallbladder. Mild parenchymal disease is demonstrated in the left lower lobe,, suggesting focal bronchopneumonia. No pleural fluid. Right lung is clear. No evidence of pulmonary embolus. IMPRESSION: 1. Negative for pulmonary embolus. 2. Mild, focal disease in the left lower lobe, suggesting bronchopneumonia. CHEST 1 VIEW 07/11/2019 11:08 AM INDICATION / CLINICAL INFORMATION: Chest Pain. COMPARISON: One view of the chest from 09/12/2018. FINDINGS: SUPPORT DEVICES: None. HEART / MEDIASTINUM: No significant abnormality. LUNGS / PLEURA: No significant pulmonary or pleural abnormality. No pneumothorax. ADDITIONAL FINDINGS: No significant additional findings. IMPRESSION: 1. No acute abnormality of the chest. - Medical Decision Making pt with chest pain initially pt was considered possibly stable for d/c therefore ntg canceled pt with mild tach with hx of coreg use as per most recent chart MAR from 08/2018 pt does no know his current meds. pt is provided levaquin for incidental infiltrate found on ct. pt does not endorse infectious sx. hospitalist to admit after bedside eval - Differential Diagnosis mi, chest wall pain, chronic pain, disection, med noncompliance Critical Care Time: No Critical care attestation.: If time is entered above; I have spent that time in minutes in the direct care of this critically ill patient, excluding procedure time. ED Disposition Clinical Impression: Chest pain, Lung infiltrate on CT, Medically noncompliant Disposition: 09 OP ADMIT IP TO THIS HOSP Is pt being admited?: Yes Condition: Stable Time of Disposition: 17:14 (Dr Lozano/hosp)
[2019-07-11 11:52] LABS: Basophils % (Auto) 0.7 % (0.0-1.8); Eosinophils % (Auto) 0.2 % (0.0-4.3); Hematocrit 52.5 % (35.5-45.6); Hemoglobin 17.4 gm/dl (11.8-15.2); Lymphocytes % (Auto) 16.5 % (13.4-35.0); Mean Corpuscular HGB Conc 33 % (32-34); Mean Corpuscular Volume 93 fl (84-94); Monocytes # (Auto) 0.5 K/mm3 (0.0-0.8); Monocytes % (Auto) 8.4 % (0.0-7.3); Platelet Count 210 K/mm3 (140-440); Red Blood Count 5.65 M/mm3 (3.65-5.03); Red Cell Distribution Width 16.5 % (13.2-15.2)
--- NOTE | 2019-07-11 11:54 | XRay Report ---
CHEST 1 VIEW 07/11/2019 11:08 AM INDICATION / CLINICAL INFORMATION: Chest Pain. COMPARISON: One view of the chest from 09/12/2018. FINDINGS: SUPPORT DEVICES: None. HEART / MEDIASTINUM: No significant abnormality. LUNGS / PLEURA: No significant pulmonary or pleural abnormality. No pneumothorax. ADDITIONAL FINDINGS: No significant additional findings. IMPRESSION: 1. No acute abnormality of the chest. Signer Name: Taran Ivey MD Signed: 07/11/2019 11:50 AM Workstation Name: [id number]
[2019-07-11 12:04] LABS: INR 0.93 (0.87-1.13)
[2019-07-11 12:05] LABS: Partial Thromboplastin Time 24.4 Sec. (24.2-36.6)
[2019-07-11 12:16] LABS: Alanine Aminotransferase 44 units/L (7-56); Albumin 4.3 g/dL (3.9-5); BUN/Creatinine Ratio 11; Blood Urea Nitrogen 12 mg/dL (9-20); Calcium 9.5 mg/dL (8.4-10.2); Hemolysis Index 4
[2019-07-11 13:38] LABS: Amphetamine Screen,Urine PRESUMPTIVE NEGATIVE; Benzodiazepines Screen,Urine PRESUMPTIVE NEGATIVE; Cannabinoid Screen,Urine PRESUMPTIVE NEGATIVE; Cocaine Screen,Urine PRESUMPTIVE NEGATIVE; Methadone Screen,Urine PRESUMPTIVE NEGATIVE; Opiate Screen,Urine PRESUMPTIVE NEGATIVE
[2019-07-11] MEDS ORDERED: cloNIDine 0.1 MG TAB PO ONE (13:45)
--- NOTE | 2019-07-11 15:33 | Cat Scan Report ---
CT angio chest INDICATION: MAIN: cp, sob 100cc of omnipaque 350. TECHNIQUE: All CT scans at this location are performed using CT dose reduction for ALARA by means of automated e xposure control. Precontrast localizer images were obtained, followed by axial and 3-dimensional reconstruction images , performed at an independent workstation by the certified nuclear medicine technologist after IV bolus contrast injection. COMPARISON: None available. FINDINGS: Mediastinum, rani and axillae are negative. Images through the upper abdomen show stones in the gallb ladder. Mild parenchymal disease is demonstrated in the left lower lobe,, suggesting focal bronchopne umonia. No pleural fluid. Right lung is clear. No evidence of pulmonary embolus. IMPRESSION: 1. Negative for pulmonary embolus. 2. Mild, focal disease in the left lower lobe, suggesting bronchopneumonia. Signer Name: Abel Barrientos MD Signed: 07/11/2019 3:28 PM Workstation Name: [id number]
[2019-07-11] MEDS ORDERED: HYDROcodone/ACETAMINOPHEN 5-325 MG TAB PO ONE (16:06)
[2019-07-11] MEDS ORDERED: carvediloL 6.25 MG TAB PO ONE (16:06)
[2019-07-11] MEDS ORDERED: levoFLOXacin 750 MG TAB PO ONE (16:07)
--- NOTE | 2019-07-11 21:40 | History and Physical Report ---
History of Present Illness Date of examination: 07/11/19 Date of admission: 07/11/19 17:14 Chief complaint: Chest pain for 4 months but more today. History of present illness: 49-year-old male with history of hypertension, coronary artery disease, hyperlipidemia and GERD comes in for chronic left-sided chest pain for the last few months. Chest pain is more today. Chest pain is left precordial and constant for the last 3 to 4 months. More for today. Chest pain is about 6 on a scale of 1-10. Intermittent in nature. No shortness of breath no palpitations. No radiation. No exacerbating or relieving factors. No fever or cough. JORGE score is 4. Past Medical History Hypertension: Yes (1990) Heart Attack/AMI: Yes (11/2014, 01/2015) Surgical History Coronary Stent: Yes Social History Smoking Status: Current Every Day Smoker Substance Use Type: Alcohol Family history Htn - Medications Home Medications: Home Medications Medication Instructions Recorded Confirmed Last Taken Type Aspirin 325 mg PO QDAY #30 tablet 09/15/16 09/13/18 Unknown Rx AtorvaSTATin [Lipitor] 40 mg PO QHS #30 tablet 09/15/16 09/13/18 Unknown Rx Clopidogrel [Plavix] 75 mg PO QDAY #30 tablet 09/15/16 09/13/18 Unknown Rx HYDROcodone/APAP 5-325 [[place] 1 each PO Q6HR PRN #20 tablet 09/15/16 09/13/18 Unknown Rx 5-325 mg TAB] ISOSORBIDE MONOnitrate [Imdur ER] 30 mg PO QDAY #30 tablet 09/15/16 09/13/18 Unknown Rx carvediloL [Coreg] 12.5 mg PO BID #60 tablet 09/15/16 09/13/18 Unknown Rx lisinopriL [Zestril TAB] 10 mg PO QDAY #30 tablet 09/15/16 09/13/18 Unknown Rx Pantoprazole [Protonix] 40 mg PO QDAY #30 tablet 09/13/18 Unknown Rx Review of systems Constitutional: no fever, no chills, no weight loss Ears, eyes, nose, mouth and throat: no nasal congestion, no nasal discharge, no sinus pressure, no vision change, no red eye. Neck: No neck pain or rigidity. Cardiovascular: chest pain, no orthopnea, no palpitations, no leg swelling, no cough no shortness of breath. Respiratory: No shortness of breath, no cough, no congestion, no wheezing Gastrointestinal: no abdominal pain, no nausea, no vomiting Genitourinary : no dysuria, no hematuria Musculoskeletal: no joint swelling or muscle ache Integumentary: no rash, no pruritis Neurological: no parathesias, no numbness, no tingling Endocrine: no cold or heat intolerance, no polyuria or polydipsia Hematologic/Lymphatic: no easy bruising, no easy bleeding, no gland swelling Allergic/Immunologic: no urticaria, no angioedema. Medications and Allergies Allergies Allergy/AdvReac Type Severity Reaction Status Date / Time lisinopril AdvReac Swelling Verified 07/11/19 10:58 Home Medications Medication Instructions Recorded Confirmed Last Taken Type Aspirin 325 mg PO QDAY #30 tablet 09/15/16 07/11/19 Unknown Rx AtorvaSTATin [Lipitor] 40 mg PO QHS #30 tablet 09/15/16 07/11/19 Unknown Rx Clopidogrel [Plavix] 75 mg PO QDAY #30 tablet 09/15/16 07/11/19 Unknown Rx HYDROcodone/APAP 5-325 [[place] 1 each PO Q6HR PRN #20 tablet 09/15/16 07/11/19 Un known Rx 5-325 mg TAB] ISOSORBIDE MONOnitrate [Imdur ER] 30 mg PO QDAY #30 tablet 09/15/16 07/11/19 Unknown Rx carvediloL [Coreg] 12.5 mg PO BID #60 tablet 09/15/16 07/11/19 Unknown Rx Pantoprazole [Protonix] 40 mg PO QDAY #30 tablet 09/13/18 07/11/19 Unknown Rx Exam - Constitutional Vitals: Temp Pulse Resp BP Pulse Ox 98.5 F 70 18 141/94 96 07/11/19 21:11 07/11/19 21:11 07/11/19 21:11 07/11/19 21:11 07/11/19 21:11 General appearance: Present: no acute distress, well-nourished - EENT Eyes: Present: PERRL ENT: hearing intact, clear oral mucosa - Neck Neck: Present: supple, normal ROM - Respiratory Respiratory effort: normal Respiratory: bilateral: CTA - Cardiovascular Heart rate: 108 Rhythm: regular Heart Sounds: Present: S1 & S2. Absent: rub, click - Extremities Extremities: pulses symmetrical, No edema Peripheral Pulses: within normal limits - Abdominal General gastrointestinal: Present: soft, non-tender, non-distended, normal bowel sounds Male genitourinary: Present: normal - Integumentary Integumentary: Present: clear, warm, dry - Musculoskeletal Musculoskeletal: gait normal, strength equal bilaterally - Psychiatric Psychiatric: appropriate mood/affect, intact judgment & insight - Neurologic Neurologic: CNII-XII intact, moves all extremities JORGE score - Jorge Score Age > 65: (0) No Aspirin use within the Past 7 Days: (0) No 3 or more CAD Risk Factors: (1) Yes 2 or more Angina events in past 24 hrs: (1) Yes Known CAD with more than 50% Stenosis: (1) Yes Elevated Cardiac Markers: (0) No ST Deviation Greater than 0.5mm: (1) Yes JORGE Score: 4 Results - Labs CBC & Chem 7: 07/11/19 11:20 07/11/19 11:20 Labs: Laboratory Last Values WBC 6.1 K/mm3 (4.5-11.0) 07/11/19 11:20 RBC 5.65 M/mm3 (3.65-5.03) H 07/11/19 11:20 Hgb 17.4 gm/dl (11.8-15.2) H 07/11/19 11:20 Hct 52.5 % (35.5-45.6) H 07/11/19 11:20 MCV 93 fl (84-94) 07/11/19 11:20 MCH 31 pg (28-32) 07/11/19 11:20 MCHC 33 % (32-34) 07/11/19 11:20 RDW 16.5 % (13.2-15.2) H 07/11/19 11:20 Plt Count 210 K/mm3 (140-440) 07/11/19 11:20 Lymph % (Auto) 16.5 % (13.4-35.0) 07/11/19 11:20 [place] % (Auto) 8.4 % (0.0-7.3) H 07/11/19 11:20 Eos % (Auto) 0.2 % (0.0-4.3) 07/11/19 11:20 Baso % (Auto) 0.7 % (0.0-1.8) 07/11/19 11:20 Lymph # 1.0 K/mm3 (1.2-5.4) L 07/11/19 11:20 [place] # 0.5 K/mm3 (0.0-0.8) 07/11/19 11:20 Eos # 0.0 K/mm3 (0.0-0.4) 07/11/19 11:20 Baso # 0.0 K/mm3 (0.0-0.1) 07/11/19 11:20 Seg Neutrophils % 74.2 % (40.0-70.0) H 07/11/19 11:20 Seg Neutrophils # 4.5 K/mm3 (1.8-7.7) 07/11/19 11:20 PT 12.6 Sec. (12.2-14.9) 07/11/19 11:20 INR 0.93 (0.87-1.13) 07/11/19 11:20 APTT 24.4 Sec. (24.2-36.6) 07/11/19 11:20 D-Dimer 849.86 ng/mlDDU (0-234) H 07/11/19 11:20 Sodium 139 mmol/L (137-145) 07/11/19 11:20 Potassium 4.5 mmol/L (3.6-5.0) 07/11/19 11:20 Chloride 99.7 mmol/L (98-107) 07/11/19 11:20 Carbon Dioxide 20 mmol/L (22-30) L 07/11/19 11:20 Anion Gap 24 mmol/L 07/11/19 11:20 BUN 12 mg/dL (9-20) 07/11/19 11:20 Creatinine 1.1 mg/dL (0.8-1.5) 07/11/19 11:20 Estimated GFR > 60 ml/min 07/11/19 11:20 BUN/Creatinine Ratio 11 % 07/11/19 11:20 Glucose 112 mg/dL (75-100) H 07/11/19 11:20 Calcium 9.5 mg/dL (8.4-10.2) 07/11/19 11:20 Magnesium 1.90 mg/dL (1.7-2.3) 07/11/19 11:20 Total Bilirubin 0.40 mg/dL (0.1-1.2) 07/11/19 11:20 AST 45 units/L (5-40) H 07/11/19 11:20 ALT 44 units/L (7-56) 07/11/19 11:20 Alkaline Phosphatase 63 units/L (35-129) 07/11/19 11:20 Troponin T 0.010 ng/mL (0.00-0.029) 07/11/19 16:06 Total Protein 7.6 g/dL (6.3-8.2) 07/11/19 11:20 Albumin 4.3 g/dL (3.9-5) 07/11/19 11:20 Albumin/Globulin Ratio 1.3 % 07/11/19 11:20 Urine Opiates Screen Presumptive negative 07/11/19 13:05 Urine Methadone Screen Presumptive negative 07/11/19 13:05 Ur Barbiturates Screen Presumptive negative 07/11/19 13:05 Ur Phencyclidine Scrn Presumptive negative 07/11/19 13:05 Ur Amphetamines Screen Presumptive negative 07/11/19 13:05 U Benzodiazepines Scrn Presumptive negative 07/11/19 13:05 Urine Cocaine Screen Presumptive negative 07/11/19 13:05 U Marijuana (THC) Screen Presumptive negative 07/11/19 13:05 Drugs of Abuse Note Disclamer 07/11/19 13:05 Plasma/Serum Alcohol < 0.01 % (0-0.07) 07/11/19 11:20 Blood Type B POSITIVE 07/11/19 11:24 Antibody Screen Negative 07/11/19 11:24 Short CBC 07/11/19 Range/Units 11:20 WBC 6.1 (4.5-11.0) K/mm3 Hgb 17.4 H (11.8-15.2) gm/dl Hct 52.5 H (35.5-45.6) % Plt Count 210 (140-440) K/mm3 BMP 07/11/19 11:20 Sodium 139 Potassium 4.5 Chloride 99.7 Carbon Dioxide 20 L BUN 12 Creatinine 1.1 Glucose 112 H Calcium 9.5 Cardiac Enzymes 07/11/19 07/11/19 Range/Units 11:20 16:06 Troponin T < 0.010 0.010 (0.00-0.029) ng/mL Liver Function 07/11/19 Range/Units 11:20 Total Bilirubin 0.40 (0.1-1.2) mg/dL AST 45 H (5-40) units/L ALT 44 (7-56) units/L Alkaline Phosphatase 63 (35-129) units/L Albumin 4.3 (3.9-5) g/dL - Imaging and Cardiology EKG: report reviewed Chest x-ray: report reviewed Imaging and Cardiology: CTA chest IMPRESSION: 1. Negative for pulmonary embolus. 2. Mild, focal disease in the left lower lobe, suggesting bronchopneumonia. EKG SINUS TACHYCARDIA LEFT ATRIAL ENLARGEMENT PROBABLE LEFT VENTRICULAR HYPERTROPHY ANTERIOR Q WAVES, Chest x-ray IMPRESSION: 1. No acute abnormality of the chest. Harvey/IV: IV Catheter Type [Left Forearm INT / Saline Lock ] Assessment and Plan Advance Directives: Yes (Full code) VTE prophylaxis?: Chemical Plan of care discussed with patient/family: Yes - Patient Problems (1) Chest pain Current Visit: Yes Status: Acute Qualifiers: Chest pain type: unspecified Qualified Code(s): R07.9 - Chest pain, unspecified Plan to address problem: Serial troponins Lexiscan in the morning Nitropaste PRN (2) Hypertension Current Visit: No Status: Chronic Qualifiers: Hypertension type: essential hypertension Qualified Code(s): I10 - Essential (primary) hypertension Plan to address problem: Continue antihypertensives Adjust medications as necessary (3) Hyperlipidemia Current Visit: Yes Status: Chronic Qualifiers: Hyperlipidemia type: mixed hyperlipidemia Qualified Code(s): E78.2 - Mixed hyperlipidemia Plan to address problem: Continue statins (4) Coronary artery disease Current Visit: Yes Status: Chronic Qualifiers: Coronary Disease-Associated Artery/Lesion type: [place] artery Associated angina: with stable angina Plan to address problem: Continue Plavix and isosorbide (5) GERD (gastroesophageal reflux disease) Current Visit: Yes Status: Chronic Qualifiers: Esophagitis presence: without esophagitis Qualified Code(s): K21.9 - Gastro-esophageal reflux disease without esophagitis Plan to address problem: Continue Protonix (6) Lung infiltrate on CT Current Visit: Yes Status: Suspected Plan to address problem: I feel it is over read There is no fever cough or short of breath. No exposure to coronavirus No isolation Staff to wear mask all the time (7) DVT prophylaxis Current Visit: Yes Status: Acute Plan to address problem: On heparin and GI prophylaxis (8) Advance care planning Current Visit: Yes Status: Acute Plan to address problem: Patient is full code. Discussed options
[2019-07-11] MEDS ORDERED: HYDROcodone/ACETAMINOPHEN 5-325 MG TAB PO PRN (22:00)
[2019-07-11] MEDS ORDERED: HYDROmorphone 1 MG/1 ML INJ IV PRN (22:01)
[2019-07-11] MEDS ORDERED: METOCLOPRAMIDE 10 MG/2 ML INJ IV PRN (22:01)
[2019-07-11] MEDS ORDERED: ACETAMINOPHEN 325 MG TAB PO PRN (22:01)
[2019-07-11] MEDS ORDERED: ONDANSETRON 4 MG/2 ML INJ IV PRN (22:01)
[2019-07-11] MEDS ORDERED: oxyCODONE /ACETAMINOPHEN 5-325MG TAB PO PRN (22:01)
[2019-07-12] MEDS: HEPARIN 5,000 UNIT/1 ML VIAL SUB-Q SCH ×2 (00:01→11:40)
[2019-07-12 07:10] LABS: Basophils # (Auto) 0.1 K/mm3 (0.0-0.1); Basophils % (Auto) 1.1 % (0.0-1.8); Eosinophils # (Auto) 0.1 K/mm3 (0.0-0.4); Eosinophils % (Auto) 1.6 % (0.0-4.3); Hematocrit 50.1 % (35.5-45.6); Hemoglobin 16.5 gm/dl (11.8-15.2); Lymphocytes # (Auto) 1.8 K/mm3 (1.2-5.4); Lymphocytes % (Auto) 32.9 % (13.4-35.0); Mean Corpuscular HGB Conc 33 % (32-34); Mean Corpuscular Volume 95 fl (84-94); Monocytes # (Auto) 0.6 K/mm3 (0.0-0.8); Monocytes % (Auto) 11.4 % (0.0-7.3); Platelet Count 193 K/mm3 (140-440); Red Blood Count 5.29 M/mm3 (3.65-5.03); Red Cell Distribution Width 16.4 % (13.2-15.2)
[2019-07-12 07:36] LABS: Alanine Aminotransferase 35 units/L (7-56); Albumin 3.8 g/dL (3.9-5); BUN/Creatinine Ratio 12; Blood Urea Nitrogen 13 mg/dL (9-20); Calcium 9.1 mg/dL (8.4-10.2); Hemolysis Index 11
[2019-07-12] MEDS ORDERED: REGADENOSON 0.4 MG/5 ML INJ IV ONE ×2 (08:36→08:48)
[2019-07-12] MEDS ORDERED: ASPIRIN 325 MG TAB PO SCH (10:00)
[2019-07-12] MEDS ORDERED: NICOTINE 14 MG/24 HR PATCH TD SCH (10:00)
[2019-07-12] MEDS ORDERED: CLOPIDOGREL 75 MG TAB PO SCH (10:00)
[2019-07-12] MEDS ORDERED: PANTOPRAZOLE 40 MG TAB PO SCH (10:00)
[2019-07-12] MEDS: carvediloL 12.5 MG TAB PO SCH ×2 (11:41)
--- NOTE | 2019-07-12 13:32 | Consultation ---
History of Present Illness Consult date: 07/12/19 Consult reason: chest pain History of present illness: 49y M with CAD and ischemic CMP. In 10/2014 a 4.0 BMS was implanted in the mid LAD for a 100% occlusion. In 12/2014 a re-cath showed patent LAD stent. In 08/2018, a thallium stress reported a fixed anterior defect without ischemia. EF was 31% on gated SPECT. He is poorly compliant with medical therapy and outpatient cardiology follow up. Presents now with atypical, nonexertional chest pain. ECG was NSR, with no ischemic changes. After SABAS, a lexiscan thallium was ordered by internal medicine service. Thallium is again negative for ischemic defect. There is persistent severe CMP, EF 27%. Past History Past Medical History: CAD, heart failure, hypertension Past Surgical History: PTCA Medications and Allergies Allergies Allergy/AdvReac Type Severity Reaction Status Date / Time lisinopril AdvReac Swelling Verified 07/11/19 10:58 Home Medications Medication Instructions Recorded Confirmed Last Taken Type Aspirin 325 mg PO QDAY #30 tablet 09/15/16 07/11/19 Unknown Rx AtorvaSTATin [Lipitor] 40 mg PO QHS #30 tablet 09/15/16 07/11/19 Unknown Rx Clopidogrel [Plavix] 75 mg PO QDAY #30 tablet 09/15/16 07/11/19 Unknown Rx HYDROcodone/APAP 5-325 [[place] 1 each PO Q6HR PRN #20 tablet 09/15/16 07/11/19 Unknown Rx 5-325 mg TAB] ISOSORBIDE MONOnitrate [Imdur ER] 30 mg PO QDAY #30 tablet 09/15/16 07/11/19 Unknown Rx carvediloL [Coreg] 12.5 mg PO BID #60 tablet 09/15/16 07/11/19 Unknown Rx Pantoprazole [Protonix] 40 mg PO QDAY #30 tablet 09/13/18 07/11/19 Unknown Rx Active Meds: Active Medications Acetaminophen (Tylenol) 650 mg PO Q4H PRN PRN Reason: Pain MILD(1-3)/Fever >100.5/BEY Acetaminophen/Hydrocodone Bitart (N[place]ezi 5/325) 1 each PO Q6H PRN PRN Reason: PAIN (4-6) Aspirin (Aspirin) 325 mg PO QDAY [facility] Last Admin: 07/12/19 11:40 Dose: 325 mg Documented by: Atorvastatin Calcium (Lipitor) 40 mg PO QHS [facility] Last Admin: 07/12/19 00:00 Dose: 40 mg Documented by: Carvedilol (Coreg) 12.5 mg PO BID [facility] Last Admin: 07/12/19 11:41 Dose: 12.5 mg Documented by: Clopidogrel Bisulfate (Plavix) 75 mg PO QDAY [facility] Last Admin: 07/12/19 11:40 Dose: 75 mg Documented by: Heparin Sodium (Porcine) (Heparin) 5,000 unit SUB-Q Q12HR [facility] Last Admin: 07/12/19 11:40 Dose: 5,000 unit Documented by: Hydromorphone HCl (Dilaudid) 0.5 mg IV Q3H PRN PRN Reason: Pain , Severe (7-10) Last Admin: 07/12/19 07:47 Dose: 0.5 mg Documented by: Isosorbide Mononitrate (Imdur) 30 mg PO QDAY [facility] Last Admin: 07/12/19 11:45 Dose: Not Given Documented by: Metoclopramide HCl (Reglan) 10 mg IV Q6H PRN PRN Reason: Nausea And Vomiting Nicotine (Habitrol) 14 mg TD QDAY [facility] Ondansetron HCl (Zofran) 4 mg IV Q8H PRN PRN Reason: Nausea And Vomiting Oxycodone/Acetaminophen (Percocet 5/325) 1 tab PO Q6H PRN PRN Reason: Pain, Moderate (4-6) Last Admin: 07/12/19 00:00 Dose: 1 tab Documented by: Pantoprazole Sodium (Protonix) 40 mg PO QDAY [facility] Last Admin: 07/12/19 11:40 Dose: 40 mg Documented by: Sodium Chloride (Sodium Chloride Flush Syringe 10 Ml) 10 ml IV BID [facility] Last Admin: 07/12/19 07:49 Dose: 10 ml Documented by: Sodium Chloride (Sodium Chloride Flush Syringe 10 Ml) 10 ml IV PRN PRN PRN Reason: LINE FLUSH Review of Systems Cardiovascular: chest pain, shortness of breath, no orthopnea, no palpitations, no rapid/irregular heart beat, no edema, no syncope, no lightheadedness Physical Examination Vital Signs Temp Pulse Resp BP Pulse Ox 98.5 F 109 H 25 H 157/106 98 07/11/19 10:55 07/11/19 10:55 07/11/19 10:55 07/11/19 10:55 07/11/19 10:55 General appearance: no acute distress HEENT: Positive: PERRL Neck: Positive: neck supple Cardiac: Positive: Reg Rate and Rhythm Lungs: Positive: Decreased Breath Sounds Neuro: Positive: Grossly Intact Abdomen: Positive: Soft Male genitourinary: Positive: deferred Skin: Positive: Clear Extremities: Absent: edema Results 07/12/19 06:50 07/12/19 06:50 Cardiac Enzymes 07/12/19 Range/Units 06:50 AST 36 (5-40) units/L Coagulation 07/11/19 Range/Units 11:20 PT 12.6 (12.2-14.9) Sec. INR 0.93 (0.87-1.13) APTT 24.4 (24.2-36.6) Sec. CBC 07/12/19 Range/Units 06:50 WBC 5.4 (4.5-11.0) K/mm3 RBC 5.29 H (3.65-5.03) M/mm3 Hgb 16.5 H (11.8-15.2) gm/dl Hct 50.1 H (35.5-45.6) % Plt Count 193 (140-440) K/mm3 Lymph # 1.8 (1.2-5.4) K/mm3 [place] # 0.6 (0.0-0.8) K/mm3 Eos # 0.1 (0.0-0.4) K/mm3 Baso # 0.1 (0.0-0.1) K/mm3 Comprehensive Metabolic Panel 07/12/19 Range/Units 06:50 Sodium 137 (137-145) mmol/L Potassium 5.0 (3.6-5.0) mmol/L Chloride 98.5 (98-107) mmol/L Carbon Dioxide 22 (22-30) mmol/L BUN 13 (9-20) mg/dL Creatinine 1.1 (0.8-1.5) mg/dL Glucose 108 H (75-100) mg/dL Calcium 9.1 (8.4-10.2) mg/dL AST 36 (5-40) units/L ALT 35 (7-56) units/L Alkaline Phosphatase 55 (35-129) units/L Total Protein 7.1 (6.3-8.2) g/dL Albumin 3.8 L (3.9-5) g/dL EKG interpretations - Telemetry EKG Rhythm: Sinus Rhythm Assessment and Plan - Patient Problems (1) Chest pain Current Visit: Yes Status: Acute Qualifiers: Chest pain type: unspecified Qualified Code(s): R07.9 - Chest pain, unspecified Plan to address problem: Medical therapy for CAD. (2) Ischemic cardiomyopathy Current Visit: No Status: Acute Plan to address problem: GDMT for ischemic CMP.
[2019-07-12] MEDS ORDERED: SPIRONOLACTONE 25 MG TAB PO SCH (14:00)
[2019-07-12] MEDS ORDERED: LOSARTAN 25 MG TAB PO SCH (14:00)
[2019-07-12] MEDS ORDERED: RANOLAZINE ER 500 MG TAB 12HR PO SCH (14:00)
[2019-07-12 14:54] VITALS: BP 133/94
--- NOTE | 2019-07-12 15:14 | Treadmill Report ---
THALLIUM STRESS TEST LEFT VENTRICLE: Left ventricle is moderately to severely dilated. Perfusion defect demonstrates a small fixed mid anterior defect of moderate intensity. There is no reversibility on the resting study. Gated analysis demonstrates severe left ventricular systolic dysfunction with ejection fraction calculated at 27%. CONCLUSION: Evidence of a severe dilated ischemic cardiomyopathy with severe left ventricular systolic dysfunction. Small fixed mid anterior defect is consistent with a prior infarct, no reversible ischemia on this study. Clinical correlation is recommended. JOB# [id number] CA/NTS
--- NOTE | 2019-07-12 17:43 | Discharge Summary ---
Providers - Providers Date of Admission: 07/11/19 17:14 Date of discharge: 07/12/19 Attending physician: VENTURA ODEN 07/11/19 22:01 Consult to Physician [CONS] Routine Comment: Consulting Provider: SHADI COLLINS Physician Instructions: Reason For Exam: Chest pain Primary care physician: OIL DELIVERER Hospitalization Condition: Stable Hospital course: Patient is a 49-year-old male with history of hypertension, coronary artery disease, hyperlipidemia and GERD comes in for chronic left-sided chest pain for the last few months * CTA chest IMPRESSION: 1. Negative for pulmonary embolus. 2. Mild, focal disease in the left lower lobe, suggesting bronchopneumonia. (1) Chest pain, stable angina, CAD medical management per Cardiology component of Costochondritis and GERD also (2) Hypertension Continue antihypertensives Adjust medications as necessary (3) Hyperlipidemia Continue statins (4) Coronary artery disease continue Plavix and isosorbide (5) GERD (gastroesophageal reflux disease) Continue Protonix (6) Lung infiltrate on CT, LLL pneumonia, most likley CAP as unilateral infection of LLL makes COVID 19 less likely No exposure to coronavirus No isolation Staff to wear mask all the time Tobacco dependency: certified alcohol and drug counselor on stop smoking, will make CAD worse Disposition: DC-01 TO HOME OR SELFCARE Time spent for discharge: 34 minutes Core Measure Documentation - Palliative Care Palliative Care/ Comfort Measures: Not Applicable - Core Measures Any of the following diagnoses?: none - VTE Discharge Requirements Deep Vein Thrombosis/Pulmonary Embolism Present on Admission: No Has pt received <5 days of overlap therapy or INR<2.0: No Anticoagulant overlap therapy prescribed at discharge: No Contraindication No Overlap Therapy order at DC: Not Indicated Exam - Physical Exam Narrative exam: Gen: WDWN, NAD, Awake, Alert, Orientated HEENT: NCAT, EOMI, PERRL, OP Clear Neck: supple, no adenopathy, no thyromegaly, no JVD CVS/Heart: RRR, normal S1S2, pulses present bilaterally Chest/Lungs: CTA B, Symmetrical chest expansion, good air entry bilaterally, reproducible left chest wall tenderness and he jumps when left chest wall is slightly touched GI/Abdomen: soft, NTND, good bowel sounds, no guarding or rebound /Bladder: no suprapubic tenderness, no CVA or paraspinal tenderness Extermity/Skin: no c/c/e, no obvious rash MSK: FROM x 4 Neuro: CN 2-12 grossly intact, no new focal deficits Psych: calm - Constitutional Vitals: Temp Pulse Resp BP Pulse Ox 99.0 F 83 17 133/94 98 07/12/19 14:52 07/12/19 14:52 07/12/19 14:52 07/12/19 14:52 07/12/19 14:52 Plan Activity: other (no strenous activity unless cleared by PCP) Diet: low salt Special Instructions: smoking cessation Follow up with: [facility] [Provider Group] - 7 Days Prescriptions: AtorvaSTATin [Lipitor] 40 mg PO QHS #30 tablet Spironolactone [Aldactone] 25 mg PO QDAY #30 tablet Aspirin 325 mg PO QDAY #30 tablet carvediloL [Coreg] 12.5 mg PO BID #60 tablet Losartan [Cozaar] 25 mg PO QDAY #30 tablet Nicotine [Habitrol] 14 mg TD QDAY #14 patch ISOSORBIDE MONOnitrate [Imdur ER] 30 mg PO QDAY #30 tablet oxyCODONE /ACETAMINOPHEN [Percocet 5/325] 1 tab PO Q6HR PRN #20 tablet PRN Reason: Pain , Severe (7-10) Clopidogrel [Plavix] 75 mg PO QDAY #30 tablet Pantoprazole [Protonix TAB] 40 mg PO QDAY #30 tablet Ranolazine ER [Ranexa ER] 500 mg PO BID #60 tablet
== END 2019-07-12 19:30 | disposition home or self-care (01) ==
LOC: ED 10:31 → 4A 17:14
PROVIDERS: ADMIT Internal Medicine; ATTEND Internal Medicine
DX: R07.89 Other chest pain (principal); E78.2 Mixed hyperlipidemia; I11.0 Hypertensive heart disease with heart failure; I50.9 Heart failure, unspecified; I25.10 Atherosclerotic heart disease of native coronary artery without angina pectoris; K21.9 Gastro-esophageal reflux disease without esophagitis; R91.8 Other nonspecific abnormal finding of lung field; I25.2 Old myocardial infarction; F17.200 Nicotine dependence, unspecified, uncomplicated; Z95.5 Presence of coronary angioplasty implant and graft; Z79.82 Long term (current) use of aspirin; Z79.899 Other long term (current) drug therapy; Z88.8 Allergy status to other drugs, medicaments and biological substances
CPT/HCPCS: 36415; 71045; 71275; 78452; 80053; 80307; 83735; 84484; 85025; 85379; 85610; 85730; 86850; 86900; 86901; 93005; 93010; 93017; 96372; 96374; 96375; 96376; 99285; A9270; A9502; G0378; J1170; J1644; J2270; J2405; J2785; Q9967; 80320; G0480

== ENCOUNTER 2020-06-29 17:43 | Observation (INO) | payer OTHER ==
--- NOTE | 2020-06-29 18:07 | Event Note ---
ED Screening Note Date of service: 06/29/20 Time: 18:07 ED Screening Note: Patient complains of chest pain and abdominal pain Brought in by EMS; appears to be intoxicated with alcohol This initial assessment/diagnostic orders/clinical plan/treatment(s) is/are subject to change based on patients health status, clinical progression and re- assessment by fellow clinical providers in the ED. Further treatment and workup at subsequent clinical providers discretion. Patient/guardian urged not to elope from the ED as their condition may be serious if not clinically assessed and managed. Initial orders include: Labs EKG Chest x-ray
--- NOTE | 2020-06-29 18:30 | XRay Report ---
CHEST 2 VIEWS INDICATION / CLINICAL INFORMATION: chest pain. COMPARISON: 07/11/2019 FINDINGS: SUPPORT DEVICES: None. HEART / MEDIASTINUM: Mild cardiomegaly. LUNGS / PLEURA: No significant pulmonary or pleural abnormality. No pneumothorax. ADDITIONAL FINDINGS: No significant additional findings. IMPRESSION: 1. Mild cardiomegaly without definite acute cardiopulmonary process. Signer Name: Odilon Bhatti MD Signed: 06/29/2020 6:25 PM Workstation Name: [id number]
[2020-06-29 18:56] LABS: Basophils % (Auto) 0.7 % (0.0-1.8); Eosinophils % (Auto) 0.3 % (0.0-4.3); Hematocrit 46.3 % (35.5-45.6); Lymphocytes # (Auto) 1.9 K/mm3 (1.2-5.4); Mean Corpuscular HGB Conc 32 % (32-34); Mean Corpuscular Volume 92 fl (84-94); Monocytes # (Auto) 0.6 K/mm3 (0.0-0.8); Monocytes % (Auto) 10.8 % (0.0-7.3); Platelet Count 216 K/mm3 (140-440); Red Blood Count 5.03 M/mm3 (3.65-5.03); Red Cell Distribution Width 18.1 % (13.2-15.2)
[2020-06-29 19:16] LABS: Alanine Aminotransferase 23 units/L (7-56); Albumin 3.8 g/dL (3.9-5); BUN/Creatinine Ratio 11; Blood Urea Nitrogen 15 mg/dL (9-20); Calcium 8.5 mg/dL (8.4-10.2); Hemolysis Index 30
--- NOTE | 2020-06-29 19:19 | Emergency Department Report ---
ED Abdominal Pain HPI - General Chief Complaint: Abdominal Pain Stated Complaint: ABD PAIN, CHEST PAIN Time Seen by Provider: 06/29/20 18:04 Source: patient, EMS Mode of arrival: Ambulatory Limitations: No Limitations - History of Present Illness Initial Comments: 50-year-old male with history of CHF with EF 27%, CAD with stents, hypertension, alcohol abuse, presents to ED with complaint of abdominal pain. Patient reports diffuse abdominal pain x2 weeks. Intermittent and crampy in nature. He reports associated nausea and vomiting. He denies any diarrhea or constipation. Patient also reports some chest pressure as well. He states over the last few days he has been waking up in the middle of the night gasping for air. He also reports orthopnea and bilateral lower extremity swelling. Patient states he is not currently under the care of a cradiologist. He is noncompliant with medications. Patient admits to drinking alcohol today. States he drinks alcohol almost daily. Patient also admits to tobacco use. MD Complaint: abdominal pain -: week(s) (2) Location: diffuse Radiation: none Migration to: no migration Severity: moderate Quality: cramping Consistency: intermittent Improves With: nothing Worsens With: nothing Associated Symptoms: nausea, vomiting. denies: diarrhea, fever, constipation - Related Data Previous Rx's Medication Instructions Recorded Last Taken Type Aspirin 325 mg PO QDAY #30 tablet 07/12/19 Unknown Rx AtorvaSTATin [Lipitor] 40 mg PO QHS #30 tablet 07/12/19 Unknown Rx Clopidogrel [Plavix] 75 mg PO QDAY #30 tablet 07/12/19 Unknown Rx ISOSORBIDE MONOnitrate [Imdur ER] 30 mg PO QDAY #30 tablet 07/12/19 Unknown Rx Losartan [Cozaar] 25 mg PO QDAY #30 tablet 07/12/19 Unknown Rx Nicotine [Habitrol] 14 mg TD QDAY #14 patch 07/12/19 Unknown Rx Pantoprazole [Protonix TAB] 40 mg PO QDAY #30 tablet 07/12/19 Unknown Rx Ranolazine ER [Ranexa ER] 500 mg PO BID #60 tablet 07/12/19 Unknown Rx Spironolactone [Aldactone] 25 mg PO QDAY #30 tablet 07/12/19 Unknown Rx carvediloL [Coreg] 12.5 mg PO BID #60 tablet 07/12/19 Unknown Rx levoFLOXacin [Levaquin] 750 mg PO QDAY #6 tablet 07/12/19 Unknown Rx Amoxicillin/Potassium Clav 1 each PO BID #14 tablet 10/16/19 Unknown Rx [Augmentin 875-125 Tablet] Docusate Sodium [Colace] 100 mg PO BID #20 capsule 10/16/19 Unknown Rx Lidocaine/Phenyl/Glycer/Petrol 1 applicatio TP 6XD PRN #1 bottle 10/16/19 Unknown Rx [Preparation H Rapid-Lido Cream] Polyethylene Glycol 3350 [Miralax] 17 gm PO DAILY PRN #7 dose 10/16/19 Unknown Rx oxyCODONE /ACETAMINOPHEN [Percocet 1 tab PO Q6HR PRN #10 tablet 10/16/19 Unknown Rx 5/325 mg] Allergies Allergy/AdvReac Type Severity Reaction Status Date / Time lisinopril AdvReac Swelling Verified 07/11/19 10:58 ED Review of Systems ROS: Stated complaint: ABD PAIN, CHEST PAIN Other details as noted in HPI Comment: All other systems reviewed and negative Constitutional: denies: chills, fever Respiratory: orthopnea, other (reports paroxysmal nocturnal dyspnea) Cardiovascular: chest pain Gastrointestinal: abdominal pain. denies: nausea, vomiting, diarrhea ED Past Medical Hx - Past Medical History Previous Medical History?: Yes Hx Hypertension: Yes (1990) Hx Heart Attack/AMI: Yes (11/2014, 01/2015) Hx Congestive Heart Failure: Yes Hx Diabetes: No Hx Deep Vein Thrombosis: No Hx Asthma: No Hx COPD: No Hx HIV: No - Surgical History Past Surgical History?: Yes Hx Coronary Stent: Yes Hx Pacemaker: No Hx Internal Defibrillator: No - Social History Smoking Status: Current Every Day Smoker Substance Use Type: Alcohol - Medications Home Medications: Home Medications Medication Instructions Recorded Confirmed Last Taken Type Aspirin 325 mg PO QDAY #30 tablet 07/12/19 Unknown Rx AtorvaSTATin [Lipitor] 40 mg PO QHS #30 tablet 07/12/19 Unknown Rx Clopidogrel [Plavix] 75 mg PO QDAY #30 tablet 07/12/19 Unknown Rx ISOSORBIDE MONOnitrate [Imdur ER] 30 mg PO QDAY #30 tablet 07/12/19 Unknown Rx Losartan [Cozaar] 25 mg PO QDAY #30 tablet 07/12/19 Unknown Rx Nicotine [Habitrol] 14 mg TD QDAY #14 patch 07/12/19 Unknown Rx Pantoprazole [Protonix TAB] 40 mg PO QDAY #30 tablet 07/12/19 Unknown Rx Ranolazine ER [Ranexa ER] 500 mg PO BID #60 tablet 07/12/19 Unknown Rx Spironolactone [Aldactone] 25 mg PO QDAY #30 tablet 07/12/19 Unknown Rx carvediloL [Coreg] 12.5 mg PO BID #60 tablet 07/12/19 Unknown Rx levoFLOXacin [Levaquin] 750 mg PO QDAY #6 tablet 07/12/19 Unknown Rx Amoxicillin/Potassium Clav 1 each PO BID #14 tablet 10/16/19 Unknown Rx [Augmentin 875-125 Tablet] Docusate Sodium [Colace] 100 mg PO BID #20 capsule 10/16/19 Unknown Rx Lidocaine/Phenyl/Glycer/Petrol 1 applicatio TP 6XD PRN #1 bottle 10/16/19 Unknown Rx [Preparation H Rapid-Lido Cream] Polyethylene Glycol 3350 [Miralax] 17 gm PO DAILY PRN #7 dose 10/16/19 Unknown Rx oxyCODONE /ACETAMINOPHEN [Percocet 1 tab PO Q6HR PRN #10 tablet 10/16/19 Un known Rx 5/325 mg] ED Physical Exam - General Limitations: No Limitations General appearance: alert, in no apparent distress, appears intoxicated - Head Head exam: Present: atraumatic, normocephalic - Eye Eye exam: Present: normal appearance, EOMI - ENT ENT exam: Present: mucous membranes moist - Neck Neck exam: Present: normal inspection - Respiratory Respiratory exam: Present: normal lung sounds bilaterally. Absent: respiratory distress - Cardiovascular Cardiovascular Exam: Present: normal rhythm, tachycardia - GI/Abdominal GI/Abdominal exam: Present: soft. Absent: distended, tenderness - Extremities Exam Extremities exam: Present: normal inspection - Neurological Exam Neurological exam: Present: alert, oriented X3 - Psychiatric Psychiatric exam: Present: normal affect, normal mood - Skin Skin exam: Present: warm, dry, intact, normal color ED Course Vital Signs 06/29/20 06/29/20 06/29/20 18:01 19:26 19:30 Temperature 97.9 F Pulse Rate 111 H 103 H 103 H Respiratory 24 32 H 33 H Rate Blood Pressure 119/90 88/58 O2 Sat by Pulse 97 94 95 Oximetry 0306/29/20 06/29/20 19:46 20:00 20:16 Temperature Pulse Rate 99 H 98 H Respiratory 17 17 Rate Blood Pressure 88/58 100/54 83/55 O2 Sat by Pulse 100 98 99 Oximetry 06/29/20 06/29/20 06/29/20 20:30 20:46 21:00 Temperature Pulse Rate Respiratory Rate Blood Pressure 83/55 83/55 83/55 O2 Sat by Pulse 95 98 98 Oximetry 06/29/20 06/29/20 06/29/20 21:16 21:32 21:46 Temperature Pulse Rate Respiratory Rate Blood Pressure 113/88 101/74 101/74 O2 Sat by Pulse 97 86 99 Oximetry 06/29/20 06/29/20 06/29/20 22:00 22:16 22:30 Temperature Pulse Rate 96 H 98 H Respiratory 28 H 20 Rate Blood Pressure 92/62 101/74 94/61 O2 Sat by Pulse 94 90 98 Oximetry 06/29/20 06/29/20 06/29/20 22:46 23:00 23:16 Temperature Pulse Rate 101 H 101 H 98 H Respiratory 17 22 16 Rate Blood Pressure 94/61 113/73 134/93 O2 Sat by Pulse 97 97 100 Oximetry 06/29/20 06/29/20 06/29/20 23:20 23:30 23:46 Temperature Pulse Rate 101 H 104 H Respiratory 22 25 H Rate Blood Pressure 122/101 122/101 O2 Sat by Pulse 100 Oximetry 06/30/20 06/30/20 00:00 00:16 Temperature Pulse Rate Respiratory Rate Blood Pressure 122/101 111/86 O2 Sat by Pulse 100 72 L Oximetry ED Medical Decision Making - Lab Data Result diagrams: 06/29/20 18:50 06/29/20 18:50 - EKG Data -: EKG Interpreted by [facility] EKG shows normal: sinus rhythm, axis, intervals, QRS complexes Rate: normal, tachycardia (rate 112) - EKG Data When compared to previous EKG there are: changes noted (Lateral T wave inversions) Interpretation: other (lateral T wave inversions) - Radiology Data Radiology results: report reviewed, image reviewed - Medical Decision Making 50-year-old male presents to ED with abdominal pain x2 weeks. Also reports some pressure-like chest pain and shortness of breath. He states he has been having difficulty sleeping secondary to orthopnea and PND. Patient has some bilateral lower extremity swelling on exam. CT was done to evaluate patient's abdominal pain. CT is negative for any intra-abdominal findings, however it does show pulmonary edema. BNP is elevated. Troponin is negative. EKG shows some new T wave inversions in the lateral leads. Patient's last stress test was 1 year ago. Patient is noncompliant with outpatient follow-up and medication regimen. Aspirin and Lasix given here in the ED. Patient will be admitted by Dr. Ross hospitalist, for further management. - Differential Diagnosis ACS, CHF, diverticulitis, gastric ulcer Critical care attestation.: If time is entered above; I have spent that time in minutes in the direct care of this critically ill patient, excluding procedure time. ED Disposition Clinical Impression: Chest pain, CHF exacerbation Disposition: OP ADMIT IP TO THIS HOSP Is pt being admited?: Yes Condition: Stable Time of Disposition: 23:06 HEART Score - HEART Score History: Slightly suspicious EKG: Non-specific Age: 45-65 Risk factors: > 3 risk factors or hx of atherosclerotic disease Troponin: Troponin T < 0.010 ng/mL (0.00-0.029) 06/29/20 21:23 Troponin: < normal limit HEART Score: 4
[2020-06-29] MEDS ORDERED: FAMOTIDINE 20 MG/2 ML INJ IV ONE (19:26)
[2020-06-29] MEDS ORDERED: LIDOCAINE VISCOUS 2% 15 ML ORAL LIQD PO ONE (19:26)
[2020-06-29] MEDS ORDERED: ALUM-MAG HYDROXIDE-SIMETHICONE 200-200-20MG/5ML ORAL LIQD 30 ML PO ONE (19:26)
--- NOTE | 2020-06-29 20:57 | Cat Scan Report ---
CT ABDOMEN AND PELVIS WITH CONTRAST INDICATION / CLINICAL INFORMATION: abd pain. TECHNIQUE: Axial CT images were obtained through the abdomen and pelvis after IV contrast. All CT sc ans at this location are performed using CT dose reduction for ALARA by means of automated exposure c ontrol. COMPARISON: 10/16/2019. FINDINGS: LOWER CHEST: There is cardiac enlargement with trace pericardial effusion. Trace right pleural effusi on with bibasilar groundglass opacities. LIVER: No significant abnormality GALLBLADDER/BILIARY TREE: Cholelithiasis. No CT evidence of cholecystitis. PANCREAS: No significant abnormality SPLEEN: No significant abnormality ADRENALS: No significant abnormality KIDNEYS / URETER: No significant abnormality URINARY BLADDER: No significant abnormality REPRODUCTIVE ORGANS: No significant abnormality STOMACH / SMALL BOWEL: Stomach and small bowel are normal in caliber. No evidence of bowel inflammati on. COLON: The colon is unremarkable. The appendix is normal in caliber. LYMPH NODES: No significant adenopathy. VASCULATURE: No significant abnormality. OTHER: No free air, free fluid, or focal fluid collection is identified. SKELETAL SYSTEM: Mild scattered degenerative changes of the spine. No acute osseous findings. IMPRESSION: 1. No acute abnormality of the abdomen or pelvis. 2. Cardiac enlargement with trace pericardial and right pleural effusion and bibasilar groundglass op acities, suspicious for edema in the setting of CHF/volume overload. Signer Name: Rex Valentino MD Signed: 06/29/2020 8:53 PM Workstation Name: [id number]
[2020-06-29] MEDS ORDERED: ASPIRIN 325 MG TAB PO ONE (22:34)
[2020-06-29] MEDS ORDERED: MORPHINE 2 MG/1 ML INJ IV ONE (22:35)
[2020-06-29] MEDS ORDERED: FUROSEMIDE 40 MG/4 ML INJ IV ONE (22:35)
[2020-06-30] MEDS ORDERED: ONDANSETRON 4 MG/2 ML INJ IV PRN (00:58)
[2020-06-30] MEDS ORDERED: ACETAMINOPHEN 325 MG TAB PO PRN (01:16)
[2020-06-30] MEDS: HEPARIN 5,000 UNIT/1 ML VIAL SUB-Q SCH ×3 (01:51→21:52)
--- NOTE | 2020-06-30 05:21 | History and Physical Report ---
History of Present Illness Date of examination: 06/29/20 Date of admission: 06/29/20 23:08 Chief complaint: Chief complaint is abdominal pain other complaint includes chest pain, shortness of breath, edema. History of present illness: History of presenting illness, patient is a 50-year-old male who said he has been having cramping abdominal pain going on for about 2 weeks, there was also history of chest discomfort that started some hours prior to presentation and associated with shortness of breath, and orthopnea. There was also history of ankle edema. Patient admitted to having congestive heart failure and been noncompliant with follow-up with system safety engineer and also noncompliant with medications. Patient also admitted to drinking alcohol on daily basis and smoking cigarettes as well, there is no history of fever or chills and no history of body ache, nausea or vomiting, or constipation Past History Past Medical History: CAD, heart failure, hypertension Past Surgical History: Other (STENT) Social history: smoking, alcohol abuse Family history: no significant family history Medications and Allergies Allergies Allergy/AdvReac Type Severity Reaction Status Date / Time lisinopril AdvReac Swelling Verified 07/11/19 10:58 Home Medications Medication Instructions Recorded Confirmed Last Taken Type Aspirin 325 mg PO QDAY #30 tablet 07/12/19 Unknown Rx AtorvaSTATin [Lipitor] 40 mg PO QHS #30 tablet 07/12/19 Unknown Rx Clopidogrel [Plavix] 75 mg PO QDAY #30 tablet 07/12/19 Unknown Rx ISOSORBIDE MONOnitrate [Imdur ER] 30 mg PO QDAY #30 tablet 07/12/19 Unknown Rx Losartan [Cozaar] 25 mg PO QDAY #30 tablet 07/12/19 Unknown Rx Nicotine [Habitrol] 14 mg TD QDAY #14 patch 07/12/19 Unknown Rx Pantoprazole [Protonix TAB] 40 mg PO QDAY #30 tablet 07/12/19 Unknown Rx Ranolazine ER [Ranexa ER] 500 mg PO BID #60 tablet 07/12/19 Unknown Rx Spironolactone [Aldactone] 25 mg PO QDAY #30 tablet 07/12/19 Unknown Rx carvediloL [Coreg] 12.5 mg PO BID #60 tablet 07/12/19 Unknown Rx levoFLOXacin [Levaquin] 750 mg PO QDAY #6 tablet 07/12/19 Unknown Rx Amoxicillin/Potassium Clav 1 each PO BID #14 tablet 10/16/19 Unknown Rx [Augmentin 875-125 Tablet] Docusate Sodium [Colace] 100 mg PO BID #20 capsule 10/16/19 Unknown Rx Lidocaine/Phenyl/Glycer/Petrol 1 applicatio TP 6XD PRN #1 bottle 10/16/19 Unknown Rx [Preparation H Rapid-Lido Cream] Polyethylene Glycol 3350 [Miralax] 17 gm PO DAILY PRN #7 dose 10/16/19 Unknown Rx oxyCODONE /ACETAMINOPHEN [Percocet 1 tab PO Q6HR PRN #10 tablet 10/16/19 Unkno wn Rx 5/325 mg] Active Meds: Active Medications Acetaminophen (Acetaminophen 325 Mg Tab) 650 mg PO Q4H PRN PRN Reason: Headache Aspirin (Aspirin 325 Mg Tab) 325 mg PO QDAY [facility] Furosemide (Furosemide 40 Mg/4 Ml Inj) 40 mg IV QDAY [facility] Heparin Sodium (Porcine) (Heparin 5,000 Unit/1 Ml Vial) 5,000 unit SUB-Q Q12HR [facility] Last Admin: 06/30/20 01:51 Dose: 5,000 unit Documented by: Morphine Sulfate (Morphine 2 Mg/1 Ml Inj) 2 mg IV Q3H PRN PRN Reason: Pain, Moderate (4-6) Nitroglycerin (Nitroglycerin 2% Oint 1 Gm) 0.5 inch TP QIDNTG [facility]; Protocol Ondansetron HCl (Ondansetron 4 Mg/2 Ml Inj) 4 mg IV Q8H PRN PRN Reason: Nausea And Vomiting Review of Systems Constitutional: weakness, no fever, no chills, no sweats, no anorexia, no malaise Eyes: bilateral: other (NO BILATERAL EYE SYMPTOM) Ears, nose, mouth and throat: no ear pain Cardiovascular: chest pain, orthopnea, edema, shortness of breath, no palpitations, no rapid/irregular heart beat, no syncope, no lightheadedness Respiratory: shortness of breath, dyspnea on exertion, no cough, no cough with sputum, no excessive sputum, no hemoptysis, no congestion, no wheezing Gastrointestinal: abdominal pain, no nausea, no vomiting, no diarrhea, no constipation, no hematemesis, no coffee ground emesis, no melena Genitourinary Male: no dysuria, no hematuria, no nocturia Rectal: no pain Musculoskeletal: no neck stiffness, no neck pain Integumentary: no rash, no pruritis Neurological: weakness, no seizures, no syncope Psychiatric: no anxiety, no depression Endocrine: no polyphagia, no polydipsia, no polyuria, no nocturia, no palpatations Hematologic/Lymphatic: no easy bruising, no easy bleeding Exam - Constitutional Vitals: Temp Pulse Resp BP Pulse Ox 97.9 F 104 H 25 H 111/86 100 06/29/20 18:01 06/29/20 23:30 06/29/20 23:30 06/30/20 00:16 06/30/20 02:28 General appearance: Present: mild distress - EENT Eyes: Present: PERRL, EOM intact ENT: hearing intact, clear oral mucosa, dentition normal - Neck Neck: Present: supple, normal ROM - Respiratory Respiratory effort: normal - Cardiovascular Rhythm: regular Heart Sounds: Present: S1 & S2. Absent: gallop, systolic murmur, diastolic murmur, click - Extremities Extremities: no ischemia, No edema Peripheral Pulses: within normal limits - Abdominal General gastrointestinal: Present: soft, non-tender, non-distended. Absent: tender, distended, rigid, hepatomegaly, splenomegaly Male genitourinary: Present: deferred - Rectal Rectal Exam: deferred - Integumentary Integumentary: Present: clear, warm, dry. Absent: erythema, jaundice - Musculoskeletal Musculoskeletal: generalized weakness - Psychiatric Psychiatric: appropriate mood/affect - Neurologic Neurologic: moves all extremities HEART Score - HEART Score EKG: Non-specific Age: 45-65 Risk factors: > 3 risk factors or hx of atherosclerotic disease Troponin: Troponin T < 0.010 ng/mL (0.00-0.029) 06/29/20 21:23 Troponin: < normal limit - Critical Actions Critical Actions: 4-6 pts:12-16.6% risk of adverse cardiac event. Should be admitted (PATIENT UNDERGOING WORK UP FOR CAD) Results - Labs CBC & Chem 7: 06/29/20 18:50 06/29/20 18:50 Labs: Laboratory Last Values WBC 5.5 K/mm3 (4.5-11.0) 06/29/20 18:50 RBC 5.03 M/mm3 (3.65-5.03) 06/29/20 18:50 Hgb 15.0 gm/dl (11.8-15.2) 06/29/20 18:50 Hct 46.3 % (35.5-45.6) H 06/29/20 18:50 MCV 92 fl (84-94) 06/29/20 18:50 MCH 30 pg (28-32) 06/29/20 18:50 MCHC 32 % (32-34) 06/29/20 18:50 RDW 18.1 % (13.2-15.2) H 06/29/20 18:50 Plt Count 216 K/mm3 (140-440) 06/29/20 18:50 Lymph % (Auto) 34.0 % (13.4-35.0) 06/29/20 18:50 [place] % (Auto) 10.8 % (0.0-7.3) H 06/29/20 18:50 Eos % (Auto) 0.3 % (0.0-4.3) 06/29/20 18:50 Baso % (Auto) 0.7 % (0.0-1.8) 06/29/20 18:50 Lymph # (Auto) 1.9 K/mm3 (1.2-5.4) 06/29/20 18:50 [place] # (Auto) 0.6 K/mm3 (0.0-0.8) 06/29/20 18:50 Eos # (Auto) 0.0 K/mm3 (0.0-0.4) 06/29/20 18:50 Baso # (Auto) 0.0 K/mm3 (0.0-0.1) 06/29/20 18:50 Seg Neutrophils % 54.2 % (40.0-70.0) 06/29/20 18:50 Seg Neutrophils # 3.0 K/mm3 (1.8-7.7) 06/29/20 18:50 Sodium 134 mmol/L (137-145) L 06/29/20 18:50 Potassium 4.4 mmol/L (3.6-5.0) 06/29/20 18:50 Chloride 95.9 mmol/L (98-107) L 06/29/20 18:50 Carbon Dioxide 23 mmol/L (22-30) 06/29/20 18:50 Anion Gap 20 mmol/L 06/29/20 18:50 BUN 15 mg/dL (9-20) 06/29/20 18:50 Creatinine 1.4 mg/dL (0.8-1.3) H 06/29/20 18:50 Estimated GFR > 60 ml/min 06/29/20 18:50 BUN/Creatinine Ratio 11 % 06/29/20 18:50 Glucose 93 mg/dL (75-100) 06/29/20 18:50 Calcium 8.5 mg/dL (8.4-10.2) 06/29/20 18:50 Total Bilirubin 0.70 mg/dL (0.1-1.2) 06/29/20 18:50 AST 39 units/L (5-40) 06/29/20 18:50 ALT 23 units/L (7-56) 06/29/20 18:50 Alkaline Phosphatase 98 units/L (35-129) 06/29/20 18:50 Troponin T < 0.010 ng/mL (0.00-0.029) 06/29/20 21:23 NT-Pro-B Natriuret Pep 1327 pg/mL (0-900) H 06/29/20 18:50 Total Protein 6.3 g/dL (6.3-8.2) 06/29/20 18:50 Albumin 3.8 g/dL (3.9-5) L 06/29/20 18:50 Albumin/Globulin Ratio 1.5 % 06/29/20 18:50 Lipase 45 units/L (13-60) 06/29/20 18:50 Harvey/IV: Voiding Method Urinal Assessment and Plan - Patient Problems (1) CHF exacerbation Current Visit: Yes Status: Acute Plan to address problem: 1, 2 D ECHOCARDIOGRAM 2. SERIAL CARDIAC ENZYME 3. I.V LASIX 4. NITROPASTE 5. CARDIOLOGY CONSULT 6 ASPIRIN PO (2) Chest pain Current Visit: Yes Status: Acute Qualifiers: Qualified Code(s): R07.9 - Chest pain, unspecified Plan to address problem: 1. TELEMETRY MORNITOR 2. SERIAL CARDIAC ENZYME 3. NITROPASTE 4. I.V MORPHINE FOR PAIN 5. CARDIOLOGY CONSULT 6. ASPIRIN PO 7. SUBCUT HEPARIN 8. TYLENOL FOR HEADACHE 9 I.V ZOFRAN FOR NAUSEA AND VOMITING
[2020-06-30] MEDS: NITROGLYCERIN 2% OINT 1 GM TP SCH ×4 (05:42→17:29)
[2020-06-30] MEDS: MORPHINE 2 MG/1 ML INJ IV PRN ×3 (05:47→19:32)
[2020-06-30 07:42] LABS: Creatine Kinase MB 4.4 ng/mL (0.0-4.0)
--- NOTE | 2020-06-30 08:40 | Event Note ---
Date: 06/30/20 50-year-old female presents with crampy abdominal pain x2 weeks associated with shortness of breath, orthopnea and lower extremity edema. Patient had a prior history of coronary disease and congestive heart failure however has been noncompliant with both neuropathologist and primary care physician as well as medications. Patient presents with symptoms consistent with CHF exacerbation and therefore was admitted for acute CHF exacerbation. Patient started on diuretics Afterload reducers beta-blockers. Aspirin Echocardiogram ordered along with cardiac isoenzymes and further work-up for chest pain. Also has a history of alcohol dependency which she was educated on and tobacco dependency she was also educated on and started nicotine patch. Currently patient hemodynamically stable pain-free not hypoxemic on exam.
[2020-06-30] MEDS ORDERED: FUROSEMIDE 40 MG/4 ML INJ IV SCH (10:00)
[2020-06-30] MEDS ORDERED: ASPIRIN 325 MG TAB PO SCH (10:00)
--- NOTE | 2020-06-30 11:44 | Consultation ---
History of Present Illness Consult date: 06/30/20 Consult reason: congestive heart failure History of present illness: The patient is a 50-year-old man who presented with shortness of breath, abdominal distention, and chest x-ray consistent with mild interstitial edema and congestive heart failure. He has a long cardiac history of coronary artery disease and ischemic cardiomyopathy. In October 2014, a 4.0 mm bare-metal stent was implanted in the mid LAD for an acute coronary syndrome. 2 months following that, a repeat cardiac catheterization revealed widely patent LAD stent. In August 2018, thallium stress test showed a fixed anterior defect with no reversible ischemia. Serial left ventricular function assessment have demonstrated severe left ventricular systolic dysfunction with ejection fraction consistently less than 30%. The patient has been prescribed optimal guideline medical therapy for chronic systolic left ventricular failure, but has admittedly been noncompliant with medical therapy, outpatient doctor follow-up visits, and salt restriction in his diet. In addition, he is a chronic alcohol abuser, and continues to drink alcohol on a daily basis. On his current presentation, he was reported to have been intoxicated with alcohol in the emergency room. ECG on this presentation is normal sinus rhythm, poor R wave progression consistent with prior anterior wall infarct, left ventricle hypertrophy and nonspecific ST and T wave abnormalities. Chest x-ray revealed moderate severity cardiomegaly, and mild interstitial pulmonary edema. Echocardiogram shows a severe four-chamber cardiomyopathy with left ventricular ejection fraction less than 15 to 20%. Past History Past Medical History: CAD, heart failure, hypertension Past Surgical History: Other (STENT) Social history: smoking, alcohol abuse Family history: no significant family history Medications and Allergies Allergies Allergy/AdvReac Type Severity Reaction Status Date / Time lisinopril AdvReac Swelling Verified 07/11/19 10:58 Home Medications Medication Instructions Recorded Confirmed Last Taken Type Aspirin 325 mg PO QDAY #30 tablet 07/12/19 Unknown Rx AtorvaSTATin [Lipitor] 40 mg PO QHS #30 tablet 07/12/19 Unknown Rx Clopidogrel [Plavix] 75 mg PO QDAY #30 tablet 07/12/19 Unknown Rx ISOSORBIDE MONOnitrate [Imdur ER] 30 mg PO QDAY #30 tablet 07/12/19 Unknown Rx Losartan [Cozaar] 25 mg PO QDAY #30 tablet 07/12/19 Unknown Rx Nicotine [Habitrol] 14 mg TD QDAY #14 patch 07/12/19 Unknown Rx Pantoprazole [Protonix TAB] 40 mg PO QDAY #30 tablet 07/12/19 Unknown Rx Ranolazine ER [Ranexa ER] 500 mg PO BID #60 tablet 07/12/19 Unknown Rx Spironolactone [Aldactone] 25 mg PO QDAY #30 tablet 07/12/19 Unknown Rx carvediloL [Coreg] 12.5 mg PO BID #60 tablet 07/12/19 Unknown Rx levoFLOXacin [Levaquin] 750 mg PO QDAY #6 tablet 07/12/19 Unknown Rx Amoxicillin/Potassium Clav 1 each PO BID #14 tablet 10/16/19 Unknown Rx [Augmentin 875-125 Tablet] Docusate Sodium [Colace] 100 mg PO BID #20 capsule 10/16/19 Unknown Rx Lidocaine/Phenyl/Glycer/Petrol 1 applicatio TP 6XD PRN #1 bottle 10/16/19 Unknown Rx [Preparation H Rapid-Lido Cream] Polyethylene Glycol 3350 [Miralax] 17 gm PO DAILY PRN #7 dose 10/16/19 Unknown Rx oxyCODONE /ACETAMINOPHEN [Percocet 1 tab PO Q6HR PRN #10 tablet 10/16/19 Unknown Rx 5/325 mg] Active Meds: Active Medications Acetaminophen (Acetaminophen 325 Mg Tab) 650 mg PO Q4H PRN PRN Reason: Headache Aspirin (Aspirin 325 Mg Tab) 325 mg PO QDAY [facility] Last Admin: 06/30/20 09:50 Dose: 325 mg Documented by: Furosemide (Furosemide 40 Mg/4 Ml Inj) 40 mg IV QDAY [facility] Last Admin: 06/30/20 09:55 Dose: 40 mg Documented by: Heparin Sodium (Porcine) (Heparin 5,000 Unit/1 Ml Vial) 5,000 unit SUB-Q Q12HR [facility] Last Admin: 06/30/20 10:00 Dose: 5,000 unit Documented by: Morphine Sulfate (Morphine 2 Mg/1 Ml Inj) 2 mg IV Q3H PRN PRN Reason: Pain, Moderate (4-6) Last Admin: 06/30/20 05:47 Dose: 2 mg Documented by: Nitroglycerin (Nitroglycerin 2% Oint 1 Gm) 0.5 inch TP QIDNTG [facility]; Protocol Last Admin: 06/30/20 09:51 Dose: 0.5 inch Documented by: Ondansetron HCl (Ondansetron 4 Mg/2 Ml Inj) 4 mg IV Q8H PRN PRN Reason: Nausea And Vomiting Review of Systems Cardiovascular: orthopnea, shortness of breath, no chest pain, no palpitations, no rapid/irregular heart beat, no edema, no syncope, no lightheadedness Gastrointestinal: other (Abdominal distention) Physical Examination Vital Signs Temp Pulse Resp BP Pulse Ox 97.9 F 111 H 24 119/90 97 06/29/20 18:01 06/29/20 18:01 06/29/20 18:01 06/29/20 18:01 06/29/20 18:01 General appearance: no acute distress HEENT: Positive: PERRL Neck: Positive: neck supple Cardiac: Positive: Reg Rate and Rhythm Lungs: Positive: Decreased Breath Sounds Neuro: Positive: Grossly Intact Abdomen: Positive: Soft Male genitourinary: Positive: deferred Skin: Positive: Clear Extremities: Absent: edema Results 06/29/20 18:50 06/29/20 18:50 Cardiac Enzymes 06/29/20 06/30/20 Range/Units 18:50 05:42 AST 39 (5-40) units/L CK-MB (CK-2) 4.4 H (0.0-4.0) ng/mL CBC 06/29/20 Range/Units 18:50 WBC 5.5 (4.5-11.0) K/mm3 RBC 5.03 (3.65-5.03) M/mm3 Hgb 15.0 (11.8-15.2) gm/dl Hct 46.3 H (35.5-45.6) % Plt Count 216 (140-440) K/mm3 Lymph # (Auto) 1.9 (1.2-5.4) K/mm3 [place] # (Auto) 0.6 (0.0-0.8) K/mm3 Eos # (Auto) 0.0 (0.0-0.4) K/mm3 Baso # (Auto) 0.0 (0.0-0.1) K/mm3 Comprehensive Metabolic Panel 06/29/20 Range/Units 18:50 Sodium 134 L (137-145) mmol/L Potassium 4.4 (3.6-5.0) mmol/L Chloride 95.9 L (98-107) mmol/L Carbon Dioxide 23 (22-30) mmol/L BUN 15 (9-20) mg/dL Creatinine 1.4 H (0.8-1.3) mg/dL Glucose 93 (75-100) mg/dL Calcium 8.5 (8.4-10.2) mg/dL AST 39 (5-40) units/L ALT 23 (7-56) units/L Alkaline Phosphatase 98 (35-129) units/L Total Protein 6.3 (6.3-8.2) g/dL Albumin 3.8 L (3.9-5) g/dL EKG interpretations - Telemetry EKG Rhythm: Sinus Rhythm Assessment and Plan - Patient Problems (1) Acute on chronic systolic heart failure Current Visit: Yes Status: Acute Plan to address problem: Patient with a history of coronary artery disease and chronic ischemic cardiomyopathy, presents with acute on chronic systolic left ventricular failure, manifested by shortness of breath, fatigue, pulmonary edema and clinical evidence of ascites. Heart failure exacerbation due to noncompliance with medical therapy, noncompliance with dietary rest salt restriction, and chronic alcohol abuse. We will treat with intravenous diuretics and intravenous milrinone. youth services librarian consult his recommended to assist with strategies to maintain outpatient medical compliance.
[2020-06-30] MEDS: SPIRONOLACTONE 25 MG TAB PO SCH (13:09)
[2020-06-30] MEDS: LOSARTAN 50 MG TAB PO SCH (13:09)
[2020-06-30 15:20] LABS: Creatine Kinase MB 4.1 ng/mL (0.0-4.0)
[2020-06-30] MEDS: FUROSEMIDE 40 MG/4 ML INJ IV SCH (17:29)
[2020-06-30] MEDS ORDERED: ZOLPIDEM 5 MG TAB PO ONE (21:16)
[2020-06-30] MEDS: carvediloL 6.25 MG TAB PO SCH (21:51)
[2020-06-30] MEDS ORDERED: MAGNESIUM SULFATE 2 GM/50 ML BAG IV ONE (22:00)
[2020-06-30] MEDS: MILRINONE-D5W 20 MG/100 ML 20 MG/100 ML BAG IV SCH (23:56)
[2020-07-01] MEDS: FUROSEMIDE 40 MG/4 ML INJ IV SCH ×2 (05:21→18:17)
[2020-07-01] MEDS: NITROGLYCERIN 2% OINT 1 GM TP SCH ×4 (05:21→18:18)
[2020-07-01] MEDS ORDERED: MAGNESIUM SULFATE 2 GM/50 ML BAG IV ONE (06:19)
--- NOTE | 2020-07-01 09:13 | Progress Note ---
Assessment and Plan Chronic systolic heart failure Hx of coronary artery disease 08/2018 MPI: no reversible ischemia Hx of ischemic cardiomyopathy Echocardiogram this presentation shows a severe four-chamber cardiomyopathy with left ventricular ejection fraction less than 15 to 20%. Noncompliant with medical therapy, outpatient doctor follow-up visits, and salt restriction in his diet. Chronic alcohol abuse Advised sodium and fluid restriction. Continue aggressive medical therapy for chronic systolic heart failure, including a trial of IV milrinone. Subjective Date of service: 07/01/20 Interval history: Patient is resting in bed comfortably. No distress noted. Short burst of NSVT seen on telemetry overnight. Patient remained asymptomatic. IV milrinone continues. Objective Vital Signs Temp Pulse Resp BP BP Pulse Ox 07/01/20 05:21 106 H 157/116 07/01/20 05:14 97.9 F 94 H 20 128/87 96 07/01/20 03:45 106 H 18 157/116 96 07/01/20 03:00 106 H 07/01/20 02:00 100 06/30/20 23:36 97.7 F 90 20 122/95 97 06/30/20 21:51 107 H 146/106 06/30/20 19:50 98.1 F 107 H 20 146/106 98 06/30/20 19:00 96 H 06/30/20 17:29 105 H 157/118 06/30/20 16:59 98.5 F 105 H 20 157/118 06/30/20 14:31 101 H 102/79 06/30/20 13:09 101 H 102/79 06/30/20 11:49 97.1 F L 101 H 19 102/79 99 06/30/20 11:00 98 H 06/30/20 09:51 98 H 146/120 - Physical Examination General: No Apparent Distress HEENT: Positive: PERRL Neck: Positive: neck supple Cardiac: Positive: Reg Rate and Rhythm Lungs: Positive: Decreased Breath Sounds Neuro: Positive: Grossly Intact Abdomen: Positive: Soft - Labs and Meds Cardiac Enzymes 06/30/20 Range/Units 14:14 CK-MB (CK-2) 4.1 H (0.0-4.0) ng/mL
[2020-07-01] MEDS: MILRINONE-D5W 20 MG/100 ML 20 MG/100 ML BAG IV SCH (09:37)
[2020-07-01] MEDS: ASPIRIN EC 81 MG TAB PO SCH (09:39)
[2020-07-01] MEDS: LOSARTAN 50 MG TAB PO SCH (09:39)
[2020-07-01] MEDS: SPIRONOLACTONE 25 MG TAB PO SCH (09:40)
[2020-07-01] MEDS: carvediloL 6.25 MG TAB PO SCH ×2 (09:40→21:13)
[2020-07-01] MEDS: MORPHINE 2 MG/1 ML INJ IV PRN ×3 (09:42→21:21)
[2020-07-01] MEDS: HEPARIN 5,000 UNIT/1 ML VIAL SUB-Q SCH ×2 (09:43→21:13)
--- NOTE | 2020-07-01 10:59 | Progress Note ---
Assessment and Plan Assessment and plan: Acute on chronic systolic heart failure. History of ischemic cardiomyopathy. Echocardiogram this presentation shows a severe four-chamber cardiomyopathy with left ventricular ejection fraction less than 15 to 20%. History of coronary artery disease. 08/2018 MPI: no reversible ischemia 07/01. Continue aggressive medical therapy for chronic systolic heart failure, including a trial of IV milrinone. History Interval history: No new issues overnight Hospitalist Physical - Constitutional Vitals: Temp Pulse Resp BP Pulse Ox 97.9 F 90 18 119/81 97 07/01/20 09:30 07/01/20 09:41 07/01/20 09:30 07/01/20 09:41 07/01/20 09:30 General appearance: Present: no acute distress - EENT Eyes: Present: PERRL, EOM intact ENT: hearing intact, clear oral mucosa, dentition normal - Neck Neck: Present: supple, normal ROM - Respiratory Respiratory effort: normal Respiratory: bilateral: CTA - Cardiovascular Rhythm: regular Heart Sounds: Present: S1 & S2. Absent: gallop, rub - Extremities Extremities: no ischemia, No edema, Full ROM - Abdominal General gastrointestinal: soft, non-tender, non-distended, normal bowel sounds - Integumentary Integumentary: Present: clear, warm, dry - Neurologic Neurologic: CNII-XII intact, moves all extremities HEART Score - HEART Score EKG: Non-specific Age: 45-65 Risk factors: > 3 risk factors or hx of atherosclerotic disease Troponin: Troponin T < 0.010 ng/mL (0.00-0.029) 06/30/20 14:14 Troponin: < normal limit - Critical Actions Critical Actions: 4-6 pts:12-16.6% risk of adverse cardiac event. Should be admitted (PATIENT UNDERGOING WORK UP FOR CAD) Results - Labs CBC & Chem 7: 06/29/20 18:50 06/29/20 18:50 Labs: Laboratory Last Values WBC 5.5 K/mm3 (4.5-11.0) 06/29/20 18:50 RBC 5.03 M/mm3 (3.65-5.03) 06/29/20 18:50 Hgb 15.0 gm/dl (11.8-15.2) 06/29/20 18:50 Hct 46.3 % (35.5-45.6) H 06/29/20 18:50 MCV 92 fl (84-94) 06/29/20 18:50 MCH 30 pg (28-32) 06/29/20 18:50 MCHC 32 % (32-34) 06/29/20 18:50 RDW 18.1 % (13.2-15.2) H 06/29/20 18:50 Plt Count 216 K/mm3 (140-440) 06/29/20 18:50 Lymph % (Auto) 34.0 % (13.4-35.0) 06/29/20 18:50 [place] % (Auto) 10.8 % (0.0-7.3) H 06/29/20 18:50 Eos % (Auto) 0.3 % (0.0-4.3) 06/29/20 18:50 Baso % (Auto) 0.7 % (0.0-1.8) 06/29/20 18:50 Lymph # (Auto) 1.9 K/mm3 (1.2-5.4) 06/29/20 18:50 [place] # (Auto) 0.6 K/mm3 (0.0-0.8) 06/29/20 18:50 Eos # (Auto) 0.0 K/mm3 (0.0-0.4) 06/29/20 18:50 Baso # (Auto) 0.0 K/mm3 (0.0-0.1) 06/29/20 18:50 Seg Neutrophils % 54.2 % (40.0-70.0) 06/29/20 18:50 Seg Neutrophils # 3.0 K/mm3 (1.8-7.7) 06/29/20 18:50 Sodium 134 mmol/L (137-145) L 06/29/20 18:50 Potassium 4.4 mmol/L (3.6-5.0) 06/29/20 18:50 Chloride 95.9 mmol/L (98-107) L 06/29/20 18:50 Carbon Dioxide 23 mmol/L (22-30) 06/29/20 18:50 Anion Gap 20 mmol/L 06/29/20 18:50 BUN 15 mg/dL (9-20) 06/29/20 18:50 Creatinine 1.4 mg/dL (0.8-1.3) H 06/29/20 18:50 Estimated GFR > 60 ml/min 06/29/20 18:50 BUN/Creatinine Ratio 11 % 06/29/20 18:50 Glucose 93 mg/dL (75-100) 06/29/20 18:50 Calcium 8.5 mg/dL (8.4-10.2) 06/29/20 18:50 Magnesium 2.10 mg/dL (1.7-2.3) 07/01/20 04:28 Total Bilirubin 0.70 mg/dL (0.1-1.2) 06/29/20 18:50 AST 39 units/L (5-40) 06/29/20 18:50 ALT 23 units/L (7-56) 06/29/20 18:50 Alkaline Phosphatase 98 units/L (35-129) 06/29/20 18:50 Total Creatine Kinase 389 units/L (55-170) H 06/30/20 14:14 CK-MB (CK-2) 4.1 ng/mL (0.0-4.0) H 06/30/20 14:14 CK-MB (CK-2) Rel Index 1.0 (0-4) 06/30/20 14:14 Troponin T < 0.010 ng/mL (0.00-0.029) 06/30/20 14:14 NT-Pro-B Natriuret Pep 1327 pg/mL (0-900) H 06/29/20 18:50 Total Protein 6.3 g/dL (6.3-8.2) 06/29/20 18:50 Albumin 3.8 g/dL (3.9-5) L 06/29/20 18:50 Albumin/Globulin Ratio 1.5 % 06/29/20 18:50 Lipase 45 units/L (13-60) 06/29/20 18:50 Harvey/IV: Voiding Method Urinal Active Medications - Current Medications Current Medications: Generic Name Dose Route Start Last Admin Trade Name Freq PRN Reason Stop Dose Admin Acetaminophen 650 mg 06/30/20 01:16 Acetaminophen 325 Mg Tab PO Q4H PRN Headache Aspirin 81 mg 07/01/20 10:00 07/01/20 09:39 Aspirin Ec 81 Mg Tab PO 81 mg QDAY [facility] Administration Atorvastatin Calcium 40 mg 06/30/20 22:00 06/30/20 21:52 Atorvastatin 40 Mg Tab PO 40 mg QHS OPAL Administration Carvedilol 6.25 mg 06/30/20 22:00 07/01/20 09:40 Carvedilol 6.25 Mg Tab PO 6.25 mg BID OPAL Administration Furosemide 40 mg 06/30/20 18:00 07/01/20 05:21 Furosemide 40 Mg/4 Ml Inj IV 40 mg 0600,1800 OPAL Administration Heparin Sodium (Porcine) 5,000 unit 06/30/20 01:15 07/01/20 09:43 Heparin 5,000 Unit/1 Ml Vial SUB-Q 5,000 unit Q12HR [facility] Administration Milrinone Lactate/Dextrose 20 mg in 100 mls @ 9.675 mls/hr 06/30/20 12:00 07/01/20 09:37 Milrinone-D5w 20 Mg/100 Ml IV 07/03/20 11:59 0.375 mcg/kg/min TITR OPAL 9.675 mls/hr Administration 0.375 MCG/KG/MIN Losartan Potassium 50 mg 06/30/20 12:00 07/01/20 09:39 Losartan 50 Mg Tab PO 50 mg QDAY [facility] Administration Morphine Sulfate 2 mg 06/30/20 00:58 07/01/20 09:42 Morphine 2 Mg/1 Ml Inj IV 2 mg Q3H PRN Administration Pain, Moderate (4-6) Nitroglycerin 0.5 inch 06/30/20 06:00 07/01/20 09:41 Nitroglycerin 2% Oint 1 Gm TP 0.5 inch QIDNTG [facility] Administration Protocol Ondansetron HCl 4 mg 06/30/20 00:58 Ondansetron 4 Mg/2 Ml Inj IV Q8H PRN Nausea And Vomiting Spironolactone 25 mg 06/30/20 12:00 07/01/20 09:40 Spironolactone 25 Mg Tab PO 25 mg QDAY [facility] Administration
[2020-07-01] MEDS: diphenhydrAMINE 25 MG CAP PO PRN (21:13)
[2020-07-02] MEDS: MORPHINE 2 MG/1 ML INJ IV PRN ×3 (06:52→22:00)
[2020-07-02] MEDS: NITROGLYCERIN 2% OINT 1 GM TP SCH ×4 (06:53→17:31)
[2020-07-02] MEDS: FUROSEMIDE 40 MG/4 ML INJ IV SCH ×2 (06:53→19:04)
--- NOTE | 2020-07-02 09:36 | Progress Note ---
Assessment and Plan Assessment and plan: Acute on chronic systolic heart failure. History of ischemic cardiomyopathy. Echocardiogram this presentation shows a severe four-chamber cardiomyopathy with left ventricular ejection fraction less than 15 to 20%. History of coronary artery disease. 08/2018 MPI: no reversible ischemia 07/01. Continue aggressive medical therapy for chronic systolic heart failure, including a trial of IV milrinone. 07/02. Continue aggressive medical therapy for chronic systolic heart failure, including a trial of IV milrinone. Cardiology following. History Interval history: No new issues overnight Hospitalist Physical - Constitutional Vitals: Temp Pulse Resp BP Pulse Ox 96.9 F L 79 18 128/88 99 07/02/20 08:18 07/02/20 09:21 07/02/20 08:18 07/02/20 08:18 07/02/20 08:18 General appearance: Present: no acute distress - EENT Eyes: Present: PERRL, EOM intact ENT: hearing intact, clear oral mucosa, dentition normal - Neck Neck: Present: supple, normal ROM - Respiratory Respiratory effort: normal Respiratory: bilateral: CTA - Cardiovascular Rhythm: regular Heart Sounds: Present: S1 & S2. Absent: gallop, rub - Extremities Extremities: no ischemia, No edema, Full ROM - Abdominal General gastrointestinal: soft, non-tender, non-distended, normal bowel sounds - Integumentary Integumentary: Present: clear, warm, dry - Neurologic Neurologic: CNII-XII intact, moves all extremities HEART Score - HEART Score EKG: Non-specific Age: 45-65 Risk factors: > 3 risk factors or hx of atherosclerotic disease Troponin: Troponin T < 0.010 ng/mL (0.00-0.029) 06/30/20 14:14 Troponin: < normal limit - Critical Actions Critical Actions: 4-6 pts:12-16.6% risk of adverse cardiac event. Should be admitted (PATIENT UNDERGOING WORK UP FOR CAD) Results - Labs CBC & Chem 7: 06/29/20 18:50 06/29/20 18:50 Labs: Laboratory Last Values WBC 5.5 K/mm3 (4.5-11.0) 06/29/20 18:50 RBC 5.03 M/mm3 (3.65-5.03) 06/29/20 18:50 Hgb 15.0 gm/dl (11.8-15.2) 06/29/20 18:50 Hct 46.3 % (35.5-45.6) H 06/29/20 18:50 MCV 92 fl (84-94) 06/29/20 18:50 MCH 30 pg (28-32) 06/29/20 18:50 MCHC 32 % (32-34) 06/29/20 18:50 RDW 18.1 % (13.2-15.2) H 06/29/20 18:50 Plt Count 216 K/mm3 (140-440) 06/29/20 18:50 Lymph % (Auto) 34.0 % (13.4-35.0) 06/29/20 18:50 [place] % (Auto) 10.8 % (0.0-7.3) H 06/29/20 18:50 Eos % (Auto) 0.3 % (0.0-4.3) 06/29/20 18:50 Baso % (Auto) 0.7 % (0.0-1.8) 06/29/20 18:50 Lymph # (Auto) 1.9 K/mm3 (1.2-5.4) 06/29/20 18:50 [place] # (Auto) 0.6 K/mm3 (0.0-0.8) 06/29/20 18:50 Eos # (Auto) 0.0 K/mm3 (0.0-0.4) 06/29/20 18:50 Baso # (Auto) 0.0 K/mm3 (0.0-0.1) 06/29/20 18:50 Seg Neutrophils % 54.2 % (40.0-70.0) 06/29/20 18:50 Seg Neutrophils # 3.0 K/mm3 (1.8-7.7) 06/29/20 18:50 Sodium 134 mmol/L (137-145) L 06/29/20 18:50 Potassium 4.4 mmol/L (3.6-5.0) 06/29/20 18:50 Chloride 95.9 mmol/L (98-107) L 06/29/20 18:50 Carbon Dioxide 23 mmol/L (22-30) 06/29/20 18:50 Anion Gap 20 mmol/L 06/29/20 18:50 BUN 15 mg/dL (9-20) 06/29/20 18:50 Creatinine 1.4 mg/dL (0.8-1.3) H 06/29/20 18:50 Estimated GFR > 60 ml/min 06/29/20 18:50 BUN/Creatinine Ratio 11 % 06/29/20 18:50 Glucose 93 mg/dL (75-100) 06/29/20 18:50 Calcium 8.5 mg/dL (8.4-10.2) 06/29/20 18:50 Magnesium 2.10 mg/dL (1.7-2.3) 07/01/20 04:28 Total Bilirubin 0.70 mg/dL (0.1-1.2) 06/29/20 18:50 AST 39 units/L (5-40) 06/29/20 18:50 ALT 23 units/L (7-56) 06/29/20 18:50 Alkaline Phosphatase 98 units/L (35-129) 06/29/20 18:50 Total Creatine Kinase 389 units/L (55-170) H 06/30/20 14:14 CK-MB (CK-2) 4.1 ng/mL (0.0-4.0) H 06/30/20 14:14 CK-MB (CK-2) Rel Index 1.0 (0-4) 06/30/20 14:14 Troponin T < 0.010 ng/mL (0.00-0.029) 06/30/20 14:14 NT-Pro-B Natriuret Pep 1327 pg/mL (0-900) H 06/29/20 18:50 Total Protein 6.3 g/dL (6.3-8.2) 06/29/20 18:50 Albumin 3.8 g/dL (3.9-5) L 06/29/20 18:50 Albumin/Globulin Ratio 1.5 % 06/29/20 18:50 Lipase 45 units/L (13-60) 06/29/20 18:50 Harvey/IV: Voiding Method Urinal Active Medications - Current Medications Current Medications: Generic Name Dose Route Start Last Admin Trade Name Freq PRN Reason Stop Dose Admin Acetaminophen 650 mg 06/30/20 01:16 Acetaminophen 325 Mg Tab PO Q4H PRN Headache Aspirin 81 mg 07/01/20 10:00 07/01/20 09:39 Aspirin Ec 81 Mg Tab PO 81 mg QDAY OPAL Administration Atorvastatin Calcium 40 mg 06/30/20 22:00 07/01/20 21:13 Atorvastatin 40 Mg Tab PO 40 mg QHS OPAL Administration Carvedilol 6.25 mg 06/30/20 22:00 07/01/20 21:13 Carvedilol 6.25 Mg Tab PO 6.25 mg BID OPAL Administration Diphenhydramine HCl 25 mg 07/01/20 20:58 07/01/20 21:13 Diphenhydramine 25 Mg Cap PO 25 mg QHS PRN Administration Sleep Furosemide 40 mg 06/30/20 18:00 07/02/20 06:53 Furosemide 40 Mg/4 Ml Inj IV 40 mg 0600,1800 OPAL Administration Heparin Sodium (Porcine) 5,000 unit 06/30/20 01:15 07/01/20 21:13 Heparin 5,000 Unit/1 Ml Vial SUB-Q 5,000 unit Q12HR OPAL Administration Milrinone Lactate/Dextrose 20 mg in 100 mls @ 9.675 mls/hr 06/30/20 12:00 07/01/20 09:37 Milrinone-D5w 20 Mg/100 Ml IV 07/03/20 11:59 0.375 mcg/kg/min TITR OPAL 9.675 mls/hr Administration 0.375 MCG/KG/MIN Losartan Potassium 50 mg 06/30/20 12:00 07/01/20 09:39 Losartan 50 Mg Tab PO 50 mg QDAY OPAL Administration Morphine Sulfate 2 mg 06/30/20 00:58 07/02/20 06:52 Morphine 2 Mg/1 Ml Inj IV 2 mg Q3H PRN Administration Pain, Moderate (4-6) Nitroglycerin 0.5 inch 06/30/20 06:00 07/02/20 06:53 Nitroglycerin 2% Oint 1 Gm TP 0.5 inch QIDNTG OPAL Administration Protocol Ondansetron HCl 4 mg 06/30/20 00:58 Ondansetron 4 Mg/2 Ml Inj IV Q8H PRN Nausea And Vomiting Spironolactone 25 mg 06/30/20 12:00 07/01/20 09:40 Spironolactone 25 Mg Tab PO 25 mg QDAY OPAL Administration
[2020-07-02] MEDS: SPIRONOLACTONE 25 MG TAB PO SCH (09:51)
[2020-07-02] MEDS: ASPIRIN EC 81 MG TAB PO SCH (09:51)
[2020-07-02] MEDS: carvediloL 6.25 MG TAB PO SCH ×2 (09:51→21:49)
[2020-07-02] MEDS: LOSARTAN 50 MG TAB PO SCH (09:52)
[2020-07-02] MEDS: HEPARIN 5,000 UNIT/1 ML VIAL SUB-Q SCH ×2 (09:52→21:50)
--- NOTE | 2020-07-02 10:25 | Progress Note ---
Assessment and Plan Chronic systolic heart failure Hx of coronary artery disease 08/2018 MPI: no reversible ischemia Hx of ischemic cardiomyopathy Echocardiogram this presentation shows a severe four-chamber cardiomyopathy with left ventricular ejection fraction less than 15 to 20%. Noncompliant with medical therapy, outpatient doctor follow-up visits, and salt restriction in his diet. Chronic alcohol abuse Advised sodium and fluid restriction. Will discontinue intravenous milrinone. Continue guideline directed medical therapy for chronic systolic heart failure. Stable cardiac chacon for discharge. Subjective Date of service: 07/02/20 Interval history: Patient appears well. Reports his breathing is better. Objective Vital Signs Temp Pulse Resp BP BP Pulse Ox 07/02/20 09:52 85 128/88 07/02/20 09:51 85 128/88 07/02/20 09:21 79 07/02/20 08:18 96.9 F L 85 18 128/88 99 07/02/20 07:41 82 128/88 99 07/02/20 03:53 97.6 F 07/02/20 03:45 97.7 F 79 20 116/82 99 07/02/20 02:00 88 07/01/20 23:14 98.7 F 85 18 105/71 95 07/01/20 21:13 88 122/77 07/01/20 19:16 98.3 F 88 20 122/77 96 07/01/20 16:38 97.5 F L 89 18 117/78 95 07/01/20 15:45 90 119/81 - Physical Examination General: No Apparent Distress HEENT: Positive: PERRL Neck: Positive: neck supple Cardiac: Positive: Reg Rate and Rhythm Lungs: Positive: Decreased Breath Sounds Neuro: Positive: Grossly Intact Abdomen: Positive: Soft Extremities: Absent: edema
[2020-07-02] MEDS: diphenhydrAMINE 25 MG CAP PO PRN (22:01)
[2020-07-03] MEDS: MORPHINE 2 MG/1 ML INJ IV PRN (03:26)
[2020-07-03] MEDS: NITROGLYCERIN 2% OINT 1 GM TP SCH ×2 (06:22→09:14)
[2020-07-03] MEDS: FUROSEMIDE 40 MG/4 ML INJ IV SCH (06:22)
[2020-07-03 07:59] VITALS: BP 100/71
[2020-07-03] MEDS: LOSARTAN 50 MG TAB PO SCH (09:14)
[2020-07-03] MEDS: HEPARIN 5,000 UNIT/1 ML VIAL SUB-Q SCH (09:14)
[2020-07-03] MEDS: carvediloL 6.25 MG TAB PO SCH (09:14)
[2020-07-03] MEDS: ASPIRIN EC 81 MG TAB PO SCH (09:14)
[2020-07-03] MEDS: SPIRONOLACTONE 25 MG TAB PO SCH (09:15)
--- NOTE | 2020-07-03 09:16 | Discharge Summary ---
Providers - Providers Date of Admission: 06/29/20 23:08 Date of discharge: 07/03/20 Attending physician: MARQUITA MONTES 06/30/20 00:56 Consult to Physician [CONS] Routine Comment: Consulting Provider: SHADI COLLINS Physician Instructions: Reason For Exam: CHF EXACERBATION WITH CHEST PAIN Primary care physician: SYSTEMS SUPPORT SPECIALIST Hospitalization Reason for admission: chf exac Condition: Stable Hospital course: The patient is a 50-year-old man who presented with shortness of breath, abdominal distention, and chest x-ray consistent with mild interstitial edema and congestive heart failure. He has a long cardiac history of coronary artery disease and ischemic cardiomyopathy. In October 2014, a 4.0 mm bare-metal stent was implanted in the mid LAD for an acute coronary syndrome. 2 months following that, a repeat cardiac catheterization revealed widely patent LAD stent. In August 2018, thallium stress test showed a fixed anterior defect with no reversible ischemia. Serial left ventricular function assessment have demonstrated severe left ventricular systolic dysfunction with ejection fraction consistently less than 30%. Cardiology reports the patient has been prescribed optimal guideline medical therapy for chronic systolic left ventricular failure, but has admittedly been noncompliant with medical therapy, outpatient doctor follow-up visits, and salt restriction in his diet. In addition, he is a chronic alcohol abuser, and continues to drink alcohol on a daily basis. On this admission, he was reported to have been intoxicated with alcohol in the emergency room. Patient was admitted with dx of acute on chronic systolic heart failure, ischemic cardiomyopathy, coronary artery disease, medical noncompliance and acute on chronic alcohol abuse. ECG on this presentation is normal sinus rhythm, poor R wave progression consistent with prior anterior wall infarct, left ventricle hypertrophy and nonspecific ST and T wave abnormalities. Chest x-ray revealed moderate severity cardiomegaly, and mild interstitial pulmonary edema. Echocardiogram showed a severe four-chamber cardiomyopathy with left ventricular ejection fraction less than 15 to 20%. During the hospital stay patient received aggressive medical therapy for acute on chronic systolic heart failure. Patient received Cozaar 50 mg daily, Lasix 40 mg IV twice daily, Coreg 6.25 mg twice daily and spironolactone 25 mg p.o. daily. Patient also received IV milrinone. Patient has significant improvement in heart failure and was felt by cardiology to have received maximal hospital benefit for discharge. Dedicated discharge time 35 minutes. Patient was also counseled on importance of medical compliance. Disposition: [place]-01 TO HOME OR SELFCARE Final Discharge Diagnosis (Prints w/discharge instructions): acute on chronic systolic heart failure, ischemic cardiomyopathy, coronary artery disease, medical noncompliance and acute on chronic alcohol abuse. - Discharge Diagnoses (1) Acute on chronic systolic heart failure Status: Acute (2) CHF exacerbation Status: Acute (3) Ischemic cardiomyopathy Status: Acute (4) Medically noncompliant Status: Acute (5) Coronary artery disease Status: Chronic Qualifiers: Coronary Disease-Associated Artery/Lesion type: [place] artery Associated angina: with stable angina (6) GERD (gastroesophageal reflux disease) Status: Chronic Qualifiers: Esophagitis presence: without esophagitis Qualified Code(s): K21.9 - Gastro-esophageal reflux disease without esophagitis (7) Hyperlipidemia Status: Chronic Qualifiers: Hyperlipidemia type: mixed hyperlipidemia Qualified Code(s): E78.2 - Mixed hyperlipidemia (8) Hypertension Status: Chronic Qualifiers: Hypertension type: essential hypertension Qualified Code(s): I10 - Essential (primary) hypertension Core Measure Documentation - Palliative Care Palliative Care/ Comfort Measures: Not Applicable - Core Measures Any of the following diagnoses?: none Exam - Constitutional Vitals: Temp Pulse Resp BP Pulse Ox 98.9 F 79 16 100/71 96 07/03/20 07:33 07/03/20 07:33 07/03/20 07:33 07/03/20 07:33 07/03/20 07:33 General appearance: Present: no acute distress, well-nourished - EENT Eyes: Present: PERRL ENT: hearing intact, clear oral mucosa - Neck Neck: Present: supple, normal ROM - Respiratory Respiratory effort: normal Respiratory: bilateral: CTA - Cardiovascular Heart Sounds: Present: S1 & S2. Absent: rub, click - Extremities Extremities: pulses symmetrical, No edema Peripheral Pulses: within normal limits - Abdominal General gastrointestinal: Present: soft, non-tender, non-distended, normal bowel sounds Male genitourinary: Present: normal - Integumentary Integumentary: Present: clear, warm, dry - Musculoskeletal Musculoskeletal: gait normal, strength equal bilaterally - Psychiatric Psychiatric: appropriate mood/affect, intact judgment & insight - Neurologic Neurologic: CNII-XII intact, moves all extremities Plan Activity: advance as tolerated Weight Bearing Status: Weight Bear as Tolerated Diet: low fat, low cholesterol, low salt Special Instructions: restrict fluid intake to (1 liter) Follow up with: PRIMARY CARE, [Primary Care Provider] - 3-5 Days Prescriptions: Spironolactone [Aldactone] 25 mg PO QDAY #30 tablet Aspirin 325 mg PO QDAY #30 tablet carvediloL [Coreg] 6.25 mg PO BID #60 tablet Losartan [Cozaar] 50 mg PO QDAY #30 tablet Nicotine [Habitrol] 14 mg TD QDAY #14 patch ISOSORBIDE MONOnitrate [Imdur ER] 30 mg PO QDAY #30 tablet Furosemide [Lasix TAB] 40 mg PO QDAY #30 tablet AtorvaSTATin [Lipitor] 40 mg PO QHS #30 tablet Polyethylene Glycol 3350 [Miralax] 17 gm PO DAILY PRN #7 dose PRN Reason: Constipation oxyCODONE /ACETAMINOPHEN [Percocet 5/325 mg] 1 tab PO Q6HR PRN #10 tablet PRN Reason: Pain , Severe (7-10) Clopidogrel [Plavix] 75 mg PO QDAY #30 tablet Pantoprazole [Protonix TAB] 40 mg PO QDAY #30 tablet Ranolazine ER [Ranexa ER] 500 mg PO BID #60 tablet
--- NOTE | 2020-07-03 09:39 | Progress Note ---
Assessment and Plan Chronic systolic heart failure Hx of coronary artery disease 08/2018 MPI: no reversible ischemia Hx of ischemic cardiomyopathy Echocardiogram this presentation shows a severe four-chamber cardiomyopathy with left ventricular ejection fraction less than 15 to 20%. Noncompliant with medical therapy, outpatient doctor follow-up visits, and salt restriction in his diet. Chronic alcohol abuse Advised sodium and fluid restriction. Continue guideline directed medical therapy for chronic systolic heart failure. Stable cardiac chacon for discharge. Subjective Date of service: 07/03/20 Interval history: No interval cardiac changes. Patient is plan to discharge home today. Objective Vital Signs Temp Pulse Pulse Resp BP BP Pulse Ox 07/03/20 07:33 98.9 F 79 16 100/71 96 07/03/20 06:22 77 120/87 07/03/20 06:00 77 07/03/20 03:56 97.8 F 77 16 120/87 97 07/02/20 23:29 98.1 F 82 14 95/68 97 07/02/20 22:00 82 07/02/20 21:50 85 125/96 07/02/20 21:49 95 H 115/81 07/02/20 21:00 85 18 07/02/20 19:05 98.4 F 80 16 115/81 98 07/02/20 17:56 73 07/02/20 17:23 85 07/02/20 15:26 97.5 F L 87 18 112/86 99 07/02/20 15:21 89 112/86 99 07/02/20 15:12 76 101/68 07/02/20 12:33 97.5 F L 76 18 101/68 95 07/02/20 12:28 75 101/68 94 07/02/20 09:52 85 128/88 07/02/20 09:51 85 128/88 - Physical Examination General: No Apparent Distress HEENT: Positive: PERRL Neck: Positive: neck supple Cardiac: Positive: Reg Rate and Rhythm Lungs: Positive: Decreased Breath Sounds Neuro: Positive: Grossly Intact Abdomen: Positive: Soft
== END 2020-07-03 17:49 | disposition home or self-care (01) ==
LOC: ED 17:43 → 4A 23:08
PROVIDERS: ADMIT Internal Medicine; ATTEND Hospitalist
DX: I11.0 Hypertensive heart disease with heart failure (principal); I50.23 Acute on chronic systolic (congestive) heart failure; R07.89 Other chest pain; I25.10 Atherosclerotic heart disease of native coronary artery without angina pectoris; I25.5 Ischemic cardiomyopathy; K21.9 Gastro-esophageal reflux disease without esophagitis; E78.2 Mixed hyperlipidemia; F17.210 Nicotine dependence, cigarettes, uncomplicated; Z79.82 Long term (current) use of aspirin; Z95.1 Presence of aortocoronary bypass graft
CPT/HCPCS: 36415; 71046; 74177; 80053; 82550; 82553; 83690; 83735; 83880; 84484; 85025; 87116; 93005; 93306; 96365; 96366; 96367; 96368; 96372; 96375; 96376; 99285; 99406; A9270; G0378; J1644; J1940; J2260; J2270; J3475; Q9967

== ENCOUNTER 2020-09-18 18:41 | Emergency (ER) | payer SELFPAY ==
--- NOTE | 2020-09-18 19:08 | Event Note ---
ED Screening Note Date of service: 09/18/20 Time: 19:07 ED Screening Note: 50-year-old male patient with history of congestive heart failure, tobacco use, hypertension, and hyperlipidemia presents to the emergency department with complaints of chest pain and cough for 2 days. Patient states, "it feels like somebody is stepping on my chest." General: Awake, appropriately interactive, no acute distress. Neck: Supple. Full range of motion intact. Cardiovascular: Regular rate and rhythm. Normal peripheral perfusion. Pulmonary: No respiratory distress. Patient is speaking normally without use of accessory muscles. Skin: No apparent rashes or lesions. Neurological: No facial asymmetry. Speech is clear. Follows commands. Patient is alert and oriented. Musculoskeletal: Moves all four extremities spontaneously with normal range of motion. Psych: Cooperative. Appropriate mood and affect. I have greeted and performed a focused rapid initial assessment of this patient. A comprehensive ED assessment and evaluation of the patient, analysis of all test results, and completion of the medical decision-making process will be conducted by additional ED providers. This initial assessment/diagnostic orders/clinical plan/treatment(s) is/are subject to change based on patients health status, clinical progression and re-assessment. Further treatment and workup at subsequent clinical provider's discretion. Patient/guardian urged not to elope from the ED as their condition may be serious if not clinically assessed and managed.
[2020-09-18 19:40] LABS: Basophils # (Auto) 0.1 K/mm3 (0.0-0.1); Basophils % (Auto) 1.2 % (0.0-1.8); Eosinophils % (Auto) 0.1 % (0.0-4.3); Hemoglobin 13.6 gm/dl (11.8-15.2); Lymphocytes # (Auto) 0.9 K/mm3 (1.2-5.4); Lymphocytes % (Auto) 16.6 % (13.4-35.0); Mean Corpuscular HGB Conc 33 % (32-34); Mean Corpuscular Volume 95 fl (84-94); Monocytes # (Auto) 0.6 K/mm3 (0.0-0.8); Platelet Count 264 K/mm3 (140-440); Red Blood Count 4.33 M/mm3 (3.65-5.03)
[2020-09-18 19:41] LABS: Red Cell Distribution Width 21.1 % (13.2-15.2)
[2020-09-18 20:06] LABS: Alanine Aminotransferase 39 units/L (7-56); Albumin 3.5 g/dL (3.9-5); BUN/Creatinine Ratio 6; Blood Urea Nitrogen 10 mg/dL (9-20); Calcium 8.8 mg/dL (8.4-10.2); Hemolysis Index 9
--- NOTE | 2020-09-18 20:25 | XRay Report ---
CHEST 2 VIEWS INDICATION / CLINICAL INFORMATION: chest pain. FINDINGS: SUPPORT DEVICES: None. HEART / MEDIASTINUM: Worsening cardiomegaly from 06/29/2020. LUNGS / PLEURA: No significant pulmonary or pleural abnormality. No pneumothorax. ADDITIONAL FINDINGS: No significant additional findings. IMPRESSION: Worsening cardiomegaly, as above Signer Name: Jayden Huang MD Signed: 09/18/2020 8:21 PM Workstation Name: [id number]
[2020-09-18] MEDS ORDERED: hydrALAZINE 25 MG TAB PO ONE (21:07)
[2020-09-18] MEDS ORDERED: FUROSEMIDE 100 MG/10 ML INJ IV ONE (21:07)
[2020-09-18] MEDS ORDERED: HYDROcodone/ACETAMINOPHEN 5-325 MG TAB PO ONE (21:07)
--- NOTE | 2020-09-18 21:31 | Emergency Department Report ---
ED General Adult HPI - General Chief complaint: Chest Pain Stated complaint: CHEST PAIN/COUGH Time Seen by Provider: 09/18/20 20:57 Source: patient Mode of arrival: Ambulatory Limitations: No Limitations - History of Present Illness Initial comments: Pt is a 50-year-old male patient with history of congestive heart failure, tobacco use, hypertension, and hyperlipidemia presents to the emergency department with complaints of chest pain and cough for 2 days. Patient states, "it feels like somebody is stepping on my chest." Symptoms are exacerbated by activity , symptom are relieved by rest. pt drove self to ed today, is a/o x 3, and ambulatory with steady gait. states he is out of medication but has follow up appointment with pcp in 4 days. Severity scale (0 -10): 10 - Related Data Previous Rx's Medication Instructions Recorded Last Taken Type levoFLOXacin [Levaquin TAB] 750 mg PO QDAY #6 tablet 07/12/19 Unknown Rx Amoxicillin/Potassium Clav 1 each PO BID #14 tablet 10/16/19 Unknown Rx [Augmentin 875-125 Tablet] Docusate Sodium [Colace CAP] 100 mg PO BID #20 capsule 10/16/19 Unknown Rx Lidocaine/Phenyl/Glycer/Petrol 1 applicatio TP 6XD PRN #1 bottle 10/16/19 Unknown Rx [Preparation H Rapid-Lido Cream] Aspirin EC [Halfprin EC] 81 mg PO QDAY tablet 07/03/20 Unknown Rx AtorvaSTATin [Lipitor] 40 mg PO QHS tablet 07/03/20 Unknown Rx Nicotine [Habitrol] 14 mg TD QDAY #14 patch 07/03/20 Unknown Rx Polyethylene Glycol 3350 [Miralax] 17 gm PO DAILY PRN #7 dose 07/03/20 Unknown Rx Ranolazine ER [Ranexa ER] 500 mg PO BID #60 tablet 07/03/20 Unknown Rx Spironolactone [Aldactone] 25 mg PO QDAY tablet 07/03/20 Unknown Rx oxyCODONE /ACETAMINOPHEN [Percocet 1 tab PO Q6HR PRN #10 tablet 07/03/20 Unknown Rx 5/325 mg] Aspirin 325 mg PO QDAY #30 tablet 09/18/20 Unknown Rx AtorvaSTATin [Lipitor] 40 mg PO QHS #30 tablet 09/18/20 Unknown Rx Clopidogrel [Plavix] 75 mg PO QDAY #30 tablet 09/18/20 Unknown Rx Furosemide [Lasix TAB] 40 mg PO QDAY #30 tablet 09/18/20 Unknown Rx ISOSORBIDE MONOnitrate [Imdur ER] 30 mg PO QDAY #30 tablet 09/18/20 Unknown Rx Losartan [Cozaar] 50 mg PO QDAY #30 tablet 09/18/20 Unknown Rx Pantoprazole [Protonix TAB] 40 mg PO QDAY #30 tablet 09/18/20 Unknown Rx Spironolactone [Aldactone] 25 mg PO QDAY #30 tablet 09/18/20 Unknown Rx carvediloL [Coreg] 6.25 mg PO BID #60 tablet 09/18/20 Unknown Rx Allergies Allergy/AdvReac Type Severity Reaction Status Date / Time lisinopril AdvReac Swelling Verified 07/11/19 10:58 ED Review of Systems ROS: Stated complaint: CHEST PAIN/COUGH Other details as noted in HPI Constitutional: denies: chills, fever Eyes: denies: eye pain, eye discharge, vision change ENT: denies: ear pain, throat pain Respiratory: cough, SOB with exertion. denies: shortness of breath, wheezing Cardiovascular: denies: chest pain, palpitations Endocrine: no symptoms reported Gastrointestinal: denies: abdominal pain, nausea, diarrhea Genitourinary: denies: urgency, dysuria Musculoskeletal: denies: back pain, joint swelling, arthralgia Skin: denies: rash, lesions Neurological: denies: headache, weakness, paresthesias Psychiatric: denies: anxiety, depression Hematological/Lymphatic: denies: easy bleeding, easy bruising ED Past Medical Hx - Past Medical History Previous Medical History?: Yes Hx Hypertension: Yes (1990) Hx Heart Attack/AMI: Yes (11/2014, 01/2015) Hx Congestive Heart Failure: Yes Hx Diabetes: No Hx Deep Vein Thrombosis: No Hx Asthma: No Hx COPD: No Hx HIV: No - Surgical History Hx Coronary Stent: Yes Hx Pacemaker: No Hx Internal Defibrillator: No - Social History Smoking Status: Current Every Day Smoker Substance Use Type: Alcohol - Medications Home Medications: Home Medications Medication Instructions Recorded Confirmed Last Taken Type levoFLOXacin [Levaquin TAB] 750 mg PO QDAY #6 tablet 07/12/19 Unknown Rx Amoxicillin/Potassium Clav 1 each PO BID #14 tablet 10/16/19 Unknown Rx [Augmentin 875-125 Tablet] Docusate Sodium [Colace CAP] 100 mg PO BID #20 capsule 10/16/19 Unknown Rx Lidocaine/Phenyl/Glycer/Petrol 1 applicatio TP 6XD PRN #1 bottle 10/16/19 Unknown Rx [Preparation H Rapid-Lido Cream] Aspirin EC [Halfprin EC] 81 mg PO QDAY tablet 07/03/20 Unknown Rx AtorvaSTATin [Lipitor] 40 mg PO QHS tablet 07/03/20 Unknown Rx Nicotine [Habitrol] 14 mg TD QDAY #14 patch 07/03/20 Unknown Rx Polyethylene Glycol 3350 [Miralax] 17 gm PO DAILY PRN #7 dose 07/03/20 Unknown Rx Ranolazine ER [Ranexa ER] 500 mg PO BID #60 tablet 07/03/20 Unknown Rx Spironolactone [Aldactone] 25 mg PO QDAY tablet 07/03/20 Unknown Rx oxyCODONE /ACETAMINOPHEN [Percocet 1 tab PO Q6HR PRN #10 tablet 07/03/20 Unknown Rx 5/325 mg] Aspirin 325 mg PO QDAY #30 tablet 09/18/20 Unknown Rx AtorvaSTATin [Lipitor] 40 mg PO QHS #30 tablet 09/18/20 Unknown Rx Clopidogrel [Plavix] 75 mg PO QDAY #30 tablet 09/18/20 Unknown Rx Furosemide [Lasix TAB] 40 mg PO QDAY #30 tablet 09/18/20 Unknown Rx ISOSORBIDE MONOnitrate [Imdur ER] 30 mg PO QDAY #30 tablet 09/18/20 Unknown Rx Losartan [Cozaar] 50 mg PO QDAY #30 tablet 09/18/20 Unknown Rx Pantoprazole [Protonix TAB] 40 mg PO QDAY #30 tablet 09/18/20 Unknown Rx Spironolactone [Aldactone] 25 mg PO QDAY #30 tablet 09/18/20 Unknown Rx carvediloL [Coreg] 6.25 mg PO BID #60 tablet 09/18/20 Unknown Rx ED Physical Exam - General Limitations: No Limitations General appearance: alert - Head Head exam: Present: atraumatic, normocephalic - Eye Eye exam: Present: normal appearance, EOMI Pupils: Present: normal accommodation - ENT ENT exam: Present: mucous membranes moist - Neck Neck exam: Present: normal inspection, full ROM. Absent: tenderness - Respiratory Respiratory exam: Present: normal lung sounds bilaterally. Absent: respiratory distress, wheezes, rales, rhonchi, stridor, chest wall tenderness - Cardiovascular Cardiovascular Exam: Present: regular rate, normal rhythm, normal heart sounds. Absent: systolic murmur, diastolic murmur, rubs, gallop, clicks, JVD, S3, S4 - GI/Abdominal GI/Abdominal exam: Present: soft, normal bowel sounds. Absent: distended, tenderness, guarding, rebound, rigid, bruit, hernia - Rectal Rectal exam: Present: deferred - Extremities Exam Extremities exam: Present: normal inspection, full ROM, normal capillary refill. Absent: tenderness, pedal edema - Back Exam Back exam: Present: normal inspection, full ROM. Absent: tenderness, CVA tenderness (R), CVA tenderness (L) - Neurological Exam Neurological exam: Present: alert, oriented X3, CN II-XII intact, normal gait, reflexes normal. Absent: motor sensory deficit - Psychiatric Psychiatric exam: Present: normal affect, normal mood - Skin Skin exam: Present: warm, dry, intact, normal color. Absent: rash ED Course Vital Signs 09/18/20 09/18/20 18:49 21:22 Temperature 97.7 F Pulse Rate 100 H 95 H Respiratory 18 Rate Blood Pressure 142/102 Blood Pressure 166/100 [Right] O2 Sat by Pulse 99 Oximetry ED Medical Decision Making - Lab Data Result diagrams: 09/18/20 19:28 09/18/20 19:28 - EKG Data EKG shows normal: sinus rhythm Rate: normal - EKG Data When compared to previous EKG there are: no significant change Interpretation: LVH (NSR Probalbe L atrial endlargement , LVH, nonspecific T wave abnormalities in lat leads, No ST Elevated WI, interp by ed attending , no change from previous ekg. ) - Radiology Data Radiology results: report reviewed, image reviewed Ordering Physician: TIMO SANDRA Date of Service: 09/18/20 Procedure(s): XR chest routine 2V Accession Number(s): [id number] cc: TIMO SANDRA Fluoro Time In Minutes: CHEST 2 VIEWS INDICATION / CLINICAL INFORMATION: chest pain. FINDINGS: SUPPORT DEVICES: None. HEART / MEDIASTINUM: Worsening cardiomegaly from 06/29/2020. LUNGS / PLEURA: No significant pulmonary or pleural abnormality. No pneumothorax. ADDITIONAL FINDINGS: No significant additional findings. IMPRESSION: Worsening cardiomegaly, as above Signer Name: Jayden Huang MD Signed: 09/18/2020 8:21 PM Workstation Name: [id number] Transcribed By: ELISABETH Dictated By: Jayden Huang MD Electronically Authenticated By: Jayden Huang MD Signed Date/Time: 09/18/202020 DD/ 19 TD/TT: - Medical Decision Making Patient diuresing, patient ambulatory to restroom x4, heart rate now is 73 BP 128/71 patient denies shortness of breath there is no chest pain there is no nausea vomiting no diaphoresis no dizziness no lightheadedness. Plan refill medications follow-up with primary care doctor in 4 days as scheduled and directed. Patient verbalizes agreement and understanding discharge plan. Patient DC'd home in stable condition at this time. Critical care attestation.: If time is entered above; I have spent that time in minutes in the direct care of this critically ill patient, excluding procedure time. ED Disposition Clinical Impression: CHF (congestive heart failure) Qualifiers: Heart failure type: unspecified Heart failure chronicity: chronic Qualified Code(s): I50.9 - Heart failure, unspecified Disposition: DC-01 TO HOME OR SELFCARE Is pt being admited?: No Does the pt Need Aspirin: No Condition: Stable Instructions: Heart Failure, Self Care, [id number], Living With Heart Failure, Heart Failure Eating Plan Additional Instructions: follow up with Dr. Hampton in 3 days as scheduled, take all medications as prescribed, return to emergency if symptoms worsen. Prescriptions: AtorvaSTATin [Lipitor] 40 mg PO QHS #30 tablet Spironolactone [Aldactone] 25 mg PO QDAY #30 tablet Aspirin 325 mg PO QDAY #30 tablet carvediloL [Coreg] 6.25 mg PO BID #60 tablet Losartan [Cozaar] 50 mg PO QDAY #30 tablet ISOSORBIDE MONOnitrate [Imdur ER] 30 mg PO QDAY #30 tablet Furosemide [Lasix TAB] 40 mg PO QDAY #30 tablet Clopidogrel [Plavix] 75 mg PO QDAY #30 tablet Pantoprazole [Protonix TAB] 40 mg PO QDAY #30 tablet Referrals: LEVI BULLARD MD [Staff Physician] - 3-5 Days Time of Disposition: 22:34
[2020-09-19 00:13] VITALS: BP 124/83
--- NOTE | 2020-09-19 10:21 | Electrocardiograph Report ---
[facility] Test Date: 2020-09-18 Test Time: 18:58:06 Pat Name: KIARA SHEN Department: Room: Gender: M Top Trimmer: CHRISTI : 1970 Requested By: ALLI KAMARA Order Number: [id number] Reading MD: Sergey Aguirre Measurements Intervals [place] Rate: 99 P: 71 VT: 150 QRS: 15 QRSD: 104 T: 119 QT: 357 QTc: 459 Interpretive Statements Sinus rhythm Probable left atrial enlargement Left ventricular hypertrophy Anterior Q waves, possibly due to LVH Nonspecific T abnormalities, lateral leads No previous ECG available for comparison Electronically Signed On 09-19-2020 10:21:18 EDT by Sergey Aguirre
== END 2020-09-18 23:20 | disposition home or self-care (01) ==
LOC: ED 18:41
DX: I11.0 Hypertensive heart disease with heart failure (principal); I50.9 Heart failure, unspecified; F17.200 Nicotine dependence, unspecified, uncomplicated; Z72.89 Other problems related to lifestyle; Z88.8 Allergy status to other drugs, medicaments and biological substances; Z79.82 Long term (current) use of aspirin; Z79.899 Other long term (current) drug therapy
CPT/HCPCS: 36415; 71046; 80053; 83880; 84484; 85025; 93005; 96374; 99284; J1940

== ENCOUNTER 2020-11-22 14:49 | Emergency (ER) | payer SELFPAY ==
[2020-11-22 16:02] VITALS: BP 141/96
== END 2020-11-22 17:00 ==
LOC: ED 14:49
DX: R22.43 Localized swelling, mass and lump, lower limb, bilateral (principal); Z53.21 Procedure and treatment not carried out due to patient leaving prior to being seen by health care provider

== ENCOUNTER 2020-12-16 19:47 | Emergency (ER) | payer SELFPAY ==
[~2020-12-16 19:47] MED LIST: ATROPINE 0.1% (1 MG/10 ML) CARDIAC SYRINGE ONE; DOPamine/D5W 800 MG/250 ML 800 MG/250 ML BAG IV ONE; EPINEPHrine 1 MG/10 ML SYRINGE ONE; SODIUM BICARB 8.4% 50 MEQ/50 ML SYRINGE IV ONE
[2020-12-16] MEDS ORDERED: DOPamine/D5W 800 MG/250 ML 800 MG/250 ML BAG IV ONE (20:03)
--- NOTE | 2020-12-16 20:18 | Emergency Department Report ---
HPI - General Time Seen by Provider: 12/16/20 20:01 - HPI HPI: Room 19 The patient is a 50-year-old male presenting with a chief complaint of cardiac arrest. Per EMS the patient had complained of feeling lightheaded and then was a witnessed collapse. EMS arrived on scene at 19:07 to find the patient receiving bystander CPR. The patient was found in asystole. ACLS protocols were initiated by EMS and the patient was intubated using an ET tube. Per EMS the patient was administered 3 rounds of epi and an amp of D50 and there was return of spontaneous circulation approximately 7 minutes prior to arrival to the ED. In the ED the patient arrested multiple times but eventually there was no return of spontaneous circulation ED Past Medical Hx - Past Medical History Hx Hypertension: Yes (1990) Hx Heart Attack/AMI: Yes (11/2014, 01/2015) Hx Congestive Heart Failure: Yes - Surgical History Hx Coronary Stent: Yes - Family History Family history: no significant - Social History Smoking Status: Unknown if ever smoked Substance Use Type: Alcohol - Medications Home Medications: Home Medications Medication Instructions Recorded Confirmed Last Taken Type levoFLOXacin [Levaquin TAB] 750 mg PO QDAY #6 tablet 07/12/19 Unknown Rx Amoxicillin/Potassium Clav 1 each PO BID #14 tablet 10/16/19 Unknown Rx [Augmentin 875-125 Tablet] Docusate Sodium [Colace CAP] 100 mg PO BID #20 capsule 10/16/19 Unknown Rx Lidocaine/Phenyl/Glycer/Petrol 1 applicatio TP 6XD PRN #1 bottle 10/16/19 Unknown Rx [Preparation H Rapid-Lido Cream] Aspirin EC [Halfprin EC] 81 mg PO QDAY tablet 07/03/20 Unknown Rx AtorvaSTATin [Lipitor] 40 mg PO QHS tablet 07/03/20 Unknown Rx Nicotine [Habitrol] 14 mg TD QDAY #14 patch 07/03/20 Unknown Rx Polyethylene Glycol 3350 [Miralax] 17 gm PO DAILY PRN #7 dose 07/03/20 Unknown Rx Ranolazine ER [Ranexa ER] 500 mg PO BID #60 tablet 07/03/20 Unknown Rx Spironolactone [Aldactone] 25 mg PO QDAY tablet 07/03/20 Unknown Rx oxyCODONE /ACETAMINOPHEN [Percocet 1 tab PO Q6HR PRN #10 tablet 03/18/21 Unknown Rx 5/325 mg] Aspirin 325 mg PO QDAY #30 tablet 09/18/20 Unknown Rx AtorvaSTATin [Lipitor] 40 mg PO QHS #30 tablet 09/18/20 Unknown Rx Clopidogrel [Plavix] 75 mg PO QDAY #30 tablet 09/18/20 Unknown Rx Furosemide [Lasix TAB] 40 mg PO QDAY #30 tablet 09/18/20 Unknown Rx ISOSORBIDE MONOnitrate [Imdur ER] 30 mg PO QDAY #30 tablet 09/18/20 Unknown Rx Losartan [Cozaar] 50 mg PO QDAY #30 tablet 09/18/20 Unknown Rx Pantoprazole [Protonix TAB] 40 mg PO QDAY #30 tablet 09/18/20 Unknown Rx Spironolactone [Aldactone] 25 mg PO QDAY #30 tablet 09/18/20 Unknown Rx carvediloL [Coreg] 6.25 mg PO BID #60 tablet 09/18/20 Unknown Rx ED Review of Systems ROS: Stated complaint: CARDIAC ARREST Other details as noted in HPI Comment: Unobtainable due to pts medical conditions Physical Exam - Physical Exam Physical Exam: GENERAL: The patient is well-developed well-nourished lying on stretcher receiving chest compressions from EMS and being bagged via ET tube. [] HEENT: Normocephalic. Atraumatic. NECK: Supple. Trachea midline CHEST/LUNGS: No spontaneous respirations. Breath sounds equal bilaterally with bagging HEART/CARDIOVASCULAR: Regular. There is no tachycardia. There is no gallop rub or murmur. ABDOMEN: Abdomen is soft, nontender. Patient has normal bowel sounds. There is no abdominal distention. SKIN: There is no rash. There is no edema. There is no diaphoresis. NEURO: GCS 3 T MUSCULOSKELETAL: There is no evidence of acute injury. ED Course - Reevaluation(s) Reevaluation #1: 12/16/20 20:32 Patient - Consultations Consultation #1: 12/16/20 20:04 EKG sent to and discussed with Dr. Parmar- no STEMI. Continue work-up and call back ED Medical Decision Making - EKG Data -: EKG Interpreted by Me EKG shows normal: sinus rhythm Rate: normal - EKG Data When compared to previous EKG there are: previous EKG unavailable Interpretation: nonspecific ST-T wave olive (ST depressions laterally), other (Left axis deviation, left bundle) - Differential Diagnosis Cardiac arrest, dysrhythmia, ACS, Critical care attestation.: If time is entered above; I have spent that time in minutes in the direct care of this critically ill patient, excluding procedure time. ED Disposition Clinical Impression: Cardiac arrest Disposition: 20 Is pt being admited?: No Does the pt Need Aspirin: No Condition: Poor Time of Disposition: 20:32 (Patient )
[2020-12-16] MEDS ORDERED: NORepinephrine/NS 4 MG-250 ML 4 MG/250 ML BAG IV ONE ×2 (20:19→20:21)
--- NOTE | 2020-12-18 09:46 | Electrocardiograph Report ---
[facility] Test Date: 2020-12-16 Test Time: 19:51:24 Pat Name: KIARA SHEN Department: Room: Gender: M Rubber Off: SE : 1970 Requested By: FABRICE GR Order Number: [id number] Reading MD: Daniel Elizondo Measurements Intervals [place] Rate: 91 P: 0 HI: 140 QRS: -68 QRSD: 161 T: 105 QT: 436 QTc: 537 Interpretive Statements Sinus rhythm IVCD, consider RBBB,,2ND STTW'S PRWP LAD Inferior infarct, old Compared to ECG 09/18/2020 18:58:06 Myocardial infarct finding now present NEW: IVCD,,,WORSE STTW'S,,,,LAD Electronically Signed On 12-18-2020 9:46:12 EDT by Daniel Elizondo
== END 2020-12-16 23:45 ==
LOC: ED 19:47
DX: I46.9 Cardiac arrest, cause unspecified (principal); I11.0 Hypertensive heart disease with heart failure; I50.9 Heart failure, unspecified; Z72.89 Other problems related to lifestyle
CPT/HCPCS: 92950; 93005; 99285; J0171; J0461; J1265